=== PATIENT | male | born 1965 | race Caucasian/White ===

== ENCOUNTER 2017-12-27 11:43 | Inpatient (IN) | payer OTHER ==
[2017-12-27 12:38] VITALS: BMI 40.9
--- NOTE | 2017-12-27 13:45 | HP ---
CIWA Score - CIWA Score Nausea/Vomitin Muscle Tremors: 4-Moderate,w/Arms Extend Anxiety: 4-Mod. Anxious/Guarded Agitation: 1-Slight > Activity Paroxysmal Sweats: 1-Minimal Palms Moist Orientation: 1-Uncertain about Date Tacttile Disturbances: 1-Very Mild Itch/Numbness Auditory Disturbances: 0-None Visual Disturbances: 0-None Headache: 2-Mild CIWA-Ar Total Score: 16 Admission ROS BHS - HPI Chief Complaint: I've got to stop, it's killing me Allergies/Adverse Reactions: Allergies Allergy/AdvReac Type Severity Reaction Status Date / Time No Known Drug Allergies Allergy Verified 12/29/14 12:54 FISH Allergy Severe Vomiting Uncoded 12/29/14 12:54 History of Present Illness: 52 yo gentleman here for detox from alcohol, one of multiple admissions for treatment - last time in detox october 2017 at [facility], last time her in 2014 , history of cirrhosis, seizures. History of being on vivitrol given to him by [facility] a few months ago. Exam Limitations: Clinical Condition - Ebola screening Have you traveled outside of the country in the last 21 days: No (N) Have you had contact with anyone from an Ebola affected area: No Have you been sick,other than usual withdrawal symptoms: No Do you have a fever: No - Review of Systems Constitutional: Loss of Appetite, Malaise, Changes in sleep EENT: reports: No Symptoms Reported Respiratory: reports: No Symptoms reported Cardiac: reports: No Symptoms Reported GI: reports: Nausea, Poor Fluid Intake, Abdominal cramping : reports: Frequency Musculoskeletal: reports: Joint Pain Integumentary: reports: Dryness Neuro: reports: Seizure, Tremors Endocrine: reports: No Symptoms Reported Hematology: reports: No Symptoms Reported Psychiatric: reports: Judgement Intact, Mood/Affect Appropiate Other Systems: Reviewed and Negative Patient History - Patient Medical History Hx Anemia: No Hx Asthma: No Hx Chronic Obstructive Pulmonary Disease (COPD): No Hx Cardiac Disorders: No Hx Hypertension: No Hx Pacemaker: No HX Cerebrovascular Accident: No Hx Seizures: Yes (alcohol related-last episode was in 2014) Hx Dementia: No Hx Diabetes: No Hx Gastrointestinal Disorders: Yes (acid reflux) Hx Liver Disease: Yes (CIRRHOSIS) Hx Genitourinary Disorders: No Hx Sexually Transmitted Disorders: No Hx Renal Disease (ESRD): No Hx Human Immunodeficiency Virus (HIV): No Hx Hepatitis C: No Hx Depression: Yes (on meds, sees psych) Hx Suicide Attempt: No Hx Schizophrenia: No - Patient Surgical History Past Surgical History: No Hx Neurologic Surgery: No Hx Cataract Extraction: No Hx Cardiac Surgery: No Hx Lung Surgery: No Hx Breast Surgery: No Hx Breast Biopsy: No Hx Abdominal Surgery: No Hx Appendectomy: No Hx Cholecystectomy: No Hx Genitourinary Surgery: No Hx Section: No Hx Orthopedic Surgery: No Other Surgical History: ENDOSCOPY WITH SCLEROTHERAPY Anesthesia Reaction: No - PPD History Previous Implant?: Yes Documented Results: Negative w/o proof Implanted On Prior R Admission?: Yes Date: 12/30/13 Results: 0 mm PPD to be Administered?: Yes - Reproductive History Patient is a Female of Child Bearing Age (11 -55 yrs old): No (male) - Smoking Cessation Smoking history: Current every day smoker Have you smoked in the past 12 months: Yes Aproximately how many cigarettes per day: 10 Hx Chewing Tobacco Use: No Initiated information on smoking cessation: Yes 'Breaking Loose' booklet given: 12/27/17 (give on floor) - Substance & Tx. History Hx Alcohol Use: Yes Hx Substance Use: Yes Substance Use Type: Alcohol, Marijuana Hx Substance Use Treatment: Yes - Substances Abused alcohol Route: Oral Frequency: Daily Amount used: twelve 12 oz beers Age of first use: 18 Date of Last Use: 12/27/17 marijuana Route: Smoking Frequency: 1-2 times per week Amount used: 1 joint Age of first use: 18 Date of Last Use: 12/23/17 Family Disease History - Family Disease History Family Disease History: Other: Father (living, healthy), Mother (living, healthy ), Brother (one - living , healthy) Admission Physical Exam BHS - Vital Signs Vital Signs: Vital Signs - 24 hr 12/27/17 12:36 Temperature 98.5 F Pulse Rate 61 Respiratory 17 Rate Blood Pressure 163/101 - Physical General Appearance: Yes: Nourished, Appropriately Dressed, Mild Distress HEENTM: Yes: Hearing grossly Normal, Normocephalic, Normal Voice Respiratory: Yes: Normal Breath Sounds, No Respiratory Distress Neck: Yes: No masses,lesions,Nodules Breast: Yes: Breast Exam Deferred Cardiology: Yes: Regular Rhythm, Regular Rate Abdominal: Yes: Soft Genitourinary: Yes: Frequency Back: Yes: Normal Inspection Musculoskeletal: Yes: full range of Motion, Gait Steady, Joint Stiffness Extremities: Yes: Normal Inspection, Normal Range of Motion, Non-Tender Neurological: Yes: Fully Oriented, Alert, Normal Mood/Affect, Normal Response Integumentary: Yes: Normal Color, Dry, Warm Lymphatic: Yes: Within Normal Limits - Diagnostic (1) Alcohol dependence with uncomplicated withdrawal Current Visit: Yes Status: Chronic (2) Alcoholic cirrhosis of liver Current Visit: Yes Status: Acute Qualifiers: Ascites presence: without ascites Qualified Code(s): K70.30 - Alcoholic cirrhosis of liver without ascites (3) Esophageal varices in alcoholic cirrhosis Current Visit: Yes Status: Acute (4) Continuous nicotine dependence Current Visit: Yes Status: Acute (5) History of seizure Current Visit: Yes Status: Chronic Cleared for Admission [facility] - Detox or Rehab [facility] Level of Care: Medically Managed Detox Regimen/Protocol: Librium [facility] Breath Alcohol Content Breath Alcohol Content: 0.026 Urine Drug Screen - Results Drug Screen Negative: No Urine Drug Screen Results: THC-Marijuana, BZO-Benzodiazepines
[2017-12-27] MEDS ORDERED: guaiFENesin/D-METHORPHAN HB 10 ML UNIT-DOSE CUPS PO PRN (14:29)
[2017-12-27] MEDS ORDERED: MAGNESIUM HYDROX 2400MG/30ML ORAL SUSPENSION 30 ML CUP PO PRN (14:29)
[2017-12-27] MEDS ORDERED: P-EPHED 60MG/TRIPROLIDI 2.5MG TABLET PO PRN (14:29)
[2017-12-27] MEDS ORDERED: chlordiazePOXIDE HCL 25 MG CAPSULE PO PRN (14:29)
[2017-12-27] MEDS ORDERED: MAG HYDROX/AL HYDROX/SIMETH 30 ML UNIT-DOSE CUP PO PRN (14:29)
[2017-12-27] MEDS ORDERED: hydrOXYzine PAMOATE 25 MG CAPSULE (FP) PO PRN (14:29)
[2017-12-27] MEDS ORDERED: MAGNESIUM CITRATE 300 ML BOTTLE PO PRN (14:29)
[2017-12-27] MEDS ORDERED: LOPERAMIDE HCL 2 MG CAPSULE PO PRN (14:29)
[2017-12-27] MEDS ORDERED: MENTHOL/PHENOL 1 EACH UD MM PRN (14:29)
[2017-12-27] MEDS ORDERED: chlordiazePOXIDE HCL 25 MG CAPSULE PO ONE (16:45)
[2017-12-27] MEDS: PANTOPRAZOLE 40 MG TABLET (FP) PO SCH (18:25)
[2017-12-27] MEDS: chlordiazePOXIDE HCL 25 MG CAPSULE PO SCH ×2 (18:25→23:00)
[2017-12-27] MEDS: NICOTINE 21 MG/24 HOURS TOPICAL PATCH TD SCH (18:33)
[2017-12-27] MEDS ORDERED: MELATONIN 5 MG TABLETS PO PRN (22:00)
[2017-12-27] MEDS: LACTULOSE 20 GM/30 ML UDC (FOR ORAL USE ONLY) PO SCH (22:59)
[2017-12-27] MEDS: THIAMINE HCL 100 MG TABLET (FP) PO SCH (23:00)
[2017-12-27] MEDS: METHYL SALICYLATE/MENTHOL OINT 30 GM TUBE TP SCH (23:00)
[2017-12-28] MEDS: chlordiazePOXIDE HCL 25 MG CAPSULE PO SCH ×4 (05:46→22:17)
[2017-12-28] MEDS: LACTULOSE 20 GM/30 ML UDC (FOR ORAL USE ONLY) PO SCH ×3 (05:49→22:17)
[2017-12-28 10:10] LABS: HEMATOCRIT 36.9 % (35.4-49); HEMOGLOBIN 12.3 GM/dL (11.7-16.9); MCH 30.1 pg (25.7-33.7); MCHC 33.2 g/dl (32.0-35.9); MEAN CELL VOLUME 90.7 fl (80-96); MEAN PLT VOLUME 10.8 fl (7.5-11.1); PLATELET COUNT 47 K/MM3 (134-434); RBC 4.07 M/mm3 (4.00-5.60); WHITE BLOOD COUNT 7.5 K/mm3 (4.0-10.0)
[2017-12-28 10:11] LABS: CHLORIDE 104 mmol/L (98-107); POTASSIUM 3.3 mmol/L (3.5-5.1); SODIUM 139 mmol/L (136-145)
[2017-12-28 10:17] LABS: URINE APPEARANCE CLEAR; URINE BILIRUBIN NEGATIVE (<2.0 mg/dL); URINE COLOR STRAW; URINE GLUCOSE (UA) NEGATIVE (NEGATIVE); URINE KETONE NEGATIVE (NEGATIVE); URINE LEUK ESTERASE NEGATIVE (NEGATIVE); URINE NITRITE NEGATIVE (NEGATIVE); URINE PROTEIN NEGATIVE (NEGATIVE); URINE UROBILINOGEN NEGATIVE mg/dL (0.2-1.0)
[2017-12-28] MEDS: PRENATAL VITAMINS W/ FOLIC ACID TABLET (FP) PO SCH (10:34)
[2017-12-28] MEDS: NICOTINE 21 MG/24 HOURS TOPICAL PATCH TD SCH (10:34)
[2017-12-28] MEDS: PANTOPRAZOLE 40 MG TABLET (FP) PO SCH (10:34)
[2017-12-28] MEDS: METHYL SALICYLATE/MENTHOL OINT 30 GM TUBE TP SCH ×2 (10:35→23:33)
[2017-12-28 10:36] LABS: ALBUMIN 3.5 g/dl (3.4-5.0); ALK PHOS 97 U/L (45-117); ANION GAP 5 (8-16); BILIRUBIN,TOTAL 1.1 mg/dL (0.2-1.0); BLOOD UREA NITROGEN 7 mg/dL (7-18); CALCIUM 9.1 mg/dL (8.5-10.1); CO2 30 mmol/L (21-32); CREATININE 0.7 mg/dL (0.7-1.3); GLUCOSE,RANDOM 92 mg/dL (74-106); SGOT/AST 65 U/L (15-37); SGPT/ALT 31 U/L (12-78); TOT PROT 6.8 g/dl (6.4-8.2)
[2017-12-28] MEDS: NADOLOL 20 MG TABLET (FP) PO SCH (10:36)
--- NOTE | 2017-12-28 12:13 | CONSULT ---
[facility] Psychiatric Consult - Data Date of interview: 12/28/17 Admission source: Self-referred Identifying data: 52 y/o male residing with living girlfriend, unemployed receiving disability benefits Substance Abuse History: Admitted to Detox for alcohol, smokes marijuana occasionally. He has a past history of numerous prior in patient and out patient Detox treatments. His most recent in patient Detox rtreatment was @ [facility] in October. Drink beers mostly. Please refer to addiction counselor summary for more detailed drug history Medical History: Liver cirrhosis. ETOH related seizures, black out spells. GERD. Surgical endoscopy with Sclerotherapy Psychiatric History: History of depression and anxiety. No prior psychiatric hospitalization. He is currently receiving out patient psychiatric care treatment @ "[facility]" , medciated with Effexor 225 mg po daily, Remeron 30mg po qhs, Celexa 10 mg po daily. He is complaint with his treatment and claimed that his medicaions are effectve in alleviating his psychiatric symptoms Physical/Sexual Abuse/Trauma History: denied Mental Status Exam - Mental Status Exam Alert and Oriented to: Time, Place, Person Cognitive Function: Fair Patient Appearance: Well Groomed Mood: Apathetic, Nervous Affect: Appropriate Patient Behavior: Cooperative Speech Pattern: Clear Voice Loudness: Normal Thought Process: Intact, Goal Oriented Thought Disorder: Not Present Hallucinations: None Suicidal Ideation: None Homicidal Ideation: None Insight/Judgement: Poor Sleep: Fair Appetite: Fair Muscle strength/Tone: Normal Gait/Station: Normal Psychiatric Findings - Problem List ([place] 1, 2,3) (1) Alcoholic cirrhosis of liver Current Visit: Yes Status: Acute Qualifiers: Ascites presence: without ascites Qualified Code(s): K70.30 - Alcoholic cirrhosis of liver without ascites (2) Continuous nicotine dependence Current Visit: Yes Status: Acute (3) Esophageal varices in alcoholic cirrhosis Current Visit: Yes Status: Acute (4) Alcohol dependence with uncomplicated withdrawal Current Visit: Yes Status: Chronic (5) History of seizure Current Visit: Yes Status: Chronic (6) Anxiety Current Visit: No Status: Acute (7) Bleeding chronic gastric ulcer Current Visit: No Status: Acute (8) Depression Current Visit: No Status: Acute - Initial Treatment Plan Initial Treatment Plan: Contiune present Detox treatment. Detox protocol. Resume Clexa 10 mg po daily. Remeron 30 mg po q hs. Effexor 225 mg po daily
--- NOTE | 2017-12-28 13:53 | PN ---
S CIWA - CIWA Score Nausea/Vomitin-Mild Nausea/No Vomiting Muscle Tremors: 4-Moderate,w/Arms Extend Anxiety: 3 Agitation: 3 Paroxysmal Sweats: 1-Minimal Palms Moist Orientation: 0-Oriented Tacttile Disturbances: 1-Very Mild Itch/Numbness Auditory Disturbances: 0-None Visual Disturbances: 0-None Headache: 0-None Present CIWA-Ar Total Score: 13 BHS Progress Note (SOAP) Subjective: sweat tremor trouble sleep at night anxiety irritable Objective: 12/28/17 13:54 Vital Signs Temperature 98 F 12/28/17 09:50 Pulse Rate 97 H 12/28/17 09:50 Respiratory Rate 18 12/28/17 09:50 Blood Pressure 120/57 12/28/17 09:50 O2 Sat by Pulse Oximetry (%) Laboratory Last Values WBC 7.5 K/mm3 (4.0-10.0) D 12/28/17 07:50 RBC 4.07 M/mm3 (4.00-5.60) 12/28/17 07:50 Hgb 12.3 GM/dL (11.7-16.9) 12/28/17 07:50 Hct 36.9 % (35.4-49) 12/28/17 07:50 MCV 90.7 fl (80-96) 12/28/17 07:50 MCH 30.1 pg (25.7-33.7) D 12/28/17 07:50 MCHC 33.2 g/dl (32.0-35.9) 12/28/17 07:50 RDW 22.0 % (11.9-15.9) H 12/28/17 07:50 Plt Count 47 K/MM3 (134-434) L D 12/28/17 07:50 MPV 10.8 fl (7.5-11.1) 12/28/17 07:50 Sodium 139 mmol/L (136-145) 12/28/17 07:50 Potassium 3.3 mmol/L (3.5-5.1) L D 12/28/17 07:50 Chloride 104 mmol/L (98-107) 12/28/17 07:50 Carbon Dioxide 30 mmol/L (21-32) 12/28/17 07:50 Anion Gap 5 (8-16) L 12/28/17 07:50 BUN 7 mg/dL (7-18) 12/28/17 07:50 Creatinine 0.7 mg/dL (0.7-1.3) 12/28/17 07:50 Creat Clearance w eGFR > 60 (>60) 12/28/17 07:50 Random Glucose 92 mg/dL (74-106) 12/28/17 07:50 Calcium 9.1 mg/dL (8.5-10.1) 12/28/17 07:50 Total Bilirubin 1.1 mg/dL (0.2-1.0) H D 12/28/17 07:50 AST 65 U/L (15-37) H D 12/28/17 07:50 ALT 31 U/L (12-78) 12/28/17 07:50 Alkaline Phosphatase 97 U/L (45-117) 12/28/17 07:50 Total Protein 6.8 g/dl (6.4-8.2) 12/28/17 07:50 Albumin 3.5 g/dl (3.4-5.0) 12/28/17 07:50 Urine Color Straw 12/28/17 09:00 Urine Appearance Clear 12/28/17 09:00 Urine pH 7.0 (5.0-8.0) 12/28/17 09:00 Ur Specific [place] 1.001 (1.001-1.035) 12/28/17 09:00 Urine Protein Negative (NEGATIVE) 12/28/17 09:00 Urine Glucose (UA) Negative (NEGATIVE) 12/28/17 09:00 Urine Ketones Negative (NEGATIVE) 12/28/17 09:00 Urine Blood Negative (NEGATIVE) 12/28/17 09:00 Urine Nitrite Negative (NEGATIVE) 12/28/17 09:00 Urine Bilirubin Negative (<2.0 mg/dL) 12/28/17 09:00 Urine Urobilinogen Negative mg/dL (0.2-1.0) 12/28/17 09:00 Ur Leukocyte Esterase Negative (NEGATIVE) 12/28/17 09:00 RPR Titer Nonreactive (NONREACTIVE) 12/28/17 07:50 lab noted Assessment: 12/28/17 13:54 withdrawal sx Plan: continue detox
--- NOTE | 2017-12-28 21:17 | PN ---
[facility] Progress Note Note: Psychiatry Attending's ip litigation associate note : Called by nurse to enter order for mirtazapine. Chart reviewed.Dr Lowe's note : appreciated. Treatment plan revisited.Vital signs are noted. As per nurse, the patient is inquisitive about his dose of remeron. Plan : Will order remeron 15 mg po hs (reduced). Confirmed by pharmacy claims of 11/07/17. At [facility] # [id number]. Titration in next 24 hours.
[2017-12-28] MEDS: MIRTAZAPINE 15 MG TABLET (FP) PO SCH (22:17)
[2017-12-28] MEDS: THIAMINE HCL 100 MG TABLET (FP) PO SCH (22:17)
[2017-12-29] MEDS: LACTULOSE 20 GM/30 ML UDC (FOR ORAL USE ONLY) PO SCH ×3 (05:32→22:24)
[2017-12-29] MEDS: chlordiazePOXIDE HCL 25 MG CAPSULE PO SCH ×2 (05:32→10:20)
--- NOTE | 2017-12-29 09:02 | EKG ---
Test Reason : Blood Pressure : / mmHG Vent. Rate : 061 BPM Atrial Rate : 061 BPM P-R Int : 154 ms QRS Dur : 088 ms QT Int : 436 ms P-R-T Axes : -11 -28 032 degrees QTc Int : 438 ms NORMAL SINUS RHYTHM NORMAL ECG WHEN COMPARED WITH ECG OF 13-NOV-2014 13:56, VENT. RATE HAS DECREASED BY 39 BPM NONSPECIFIC T WAVE ABNORMALITY NOW EVIDENT IN INFERIOR LEADS Confirmed by RJ MACKEY, TULIO ([id number]) on 12/29/2017 9:02:34 AM Referred By: Confirmed By:TULIO DE LA ROSA MD
[2017-12-29] MEDS ORDERED: VENLAFAXINE HCL PO SCH (10:00)
[2017-12-29] MEDS ORDERED: VENLAFAXINE HCL 100 MG TABLET PO SCH (10:00)
[2017-12-29] MEDS: NADOLOL 20 MG TABLET (FP) PO SCH (10:19)
[2017-12-29] MEDS: PANTOPRAZOLE 40 MG TABLET (FP) PO SCH (10:19)
[2017-12-29] MEDS: NICOTINE 21 MG/24 HOURS TOPICAL PATCH TD SCH (10:19)
[2017-12-29] MEDS: PRENATAL VITAMINS W/ FOLIC ACID TABLET (FP) PO SCH (10:19)
[2017-12-29] MEDS: METHYL SALICYLATE/MENTHOL OINT 30 GM TUBE TP SCH ×2 (10:21→22:24)
--- NOTE | 2017-12-29 10:24 | PN ---
S CIWA - CIWA Score Nausea/Vomitin Muscle Tremors: 3 Anxiety: 2 Agitation: 2 Paroxysmal Sweats: 1-Minimal Palms Moist Orientation: 0-Oriented Tacttile Disturbances: 1-Very Mild Itch/Numbness Auditory Disturbances: 1-Very Mild Visual Disturbances: 0-None Headache: 2-Mild CIWA-Ar Total Score: 15 BHS Progress Note (SOAP) Subjective: alert,irritable,anxious,interrupted sleep,tremor Objective: 12/29/17 10:23 Vital Signs Temperature 95.5 F L 12/29/17 10:00 Pulse Rate 68 12/29/17 10:00 Respiratory Rate 16 12/29/17 10:00 Blood Pressure 119/74 12/29/17 10:00 O2 Sat by Pulse Oximetry (%) Laboratory Last Values WBC 7.5 K/mm3 (4.0-10.0) D 12/28/17 07:50 RBC 4.07 M/mm3 (4.00-5.60) 12/28/17 07:50 Hgb 12.3 GM/dL (11.7-16.9) 12/28/17 07:50 Hct 36.9 % (35.4-49) 12/28/17 07:50 MCV 90.7 fl (80-96) 12/28/17 07:50 MCH 30.1 pg (25.7-33.7) D 12/28/17 07:50 MCHC 33.2 g/dl (32.0-35.9) 12/28/17 07:50 RDW 22.0 % (11.9-15.9) H 12/28/17 07:50 Plt Count 47 K/MM3 (134-434) L D 12/28/17 07:50 MPV 10.8 fl (7.5-11.1) 12/28/17 07:50 Sodium 139 mmol/L (136-145) 12/28/17 07:50 Potassium 3.3 mmol/L (3.5-5.1) L D 12/28/17 07:50 Chloride 104 mmol/L (98-107) 12/28/17 07:50 Carbon Dioxide 30 mmol/L (21-32) 12/28/17 07:50 Anion Gap 5 (8-16) L 12/28/17 07:50 BUN 7 mg/dL (7-18) 12/28/17 07:50 Creatinine 0.7 mg/dL (0.7-1.3) 12/28/17 07:50 Creat Clearance w eGFR > 60 (>60) 12/28/17 07:50 Random Glucose 92 mg/dL (74-106) 12/28/17 07:50 Calcium 9.1 mg/dL (8.5-10.1) 12/28/17 07:50 Total Bilirubin 1.1 mg/dL (0.2-1.0) H D 12/28/17 07:50 AST 65 U/L (15-37) H D 12/28/17 07:50 ALT 31 U/L (12-78) 12/28/17 07:50 Alkaline Phosphatase 97 U/L (45-117) 12/28/17 07:50 Total Protein 6.8 g/dl (6.4-8.2) 12/28/17 07:50 Albumin 3.5 g/dl (3.4-5.0) 12/28/17 07:50 Urine Color Straw 12/28/17 09:00 Urine Appearance Clear 12/28/17 09:00 Urine pH 7.0 (5.0-8.0) 12/28/17 09:00 Ur Specific [place] 1.001 (1.001-1.035) 12/28/17 09:00 Urine Protein Negative (NEGATIVE) 12/28/17 09:00 Urine Glucose (UA) Negative (NEGATIVE) 12/28/17 09:00 Urine Ketones Negative (NEGATIVE) 12/28/17 09:00 Urine Blood Negative (NEGATIVE) 12/28/17 09:00 Urine Nitrite Negative (NEGATIVE) 12/28/17 09:00 Urine Bilirubin Negative (<2.0 mg/dL) 12/28/17 09:00 Urine Urobilinogen Negative mg/dL (0.2-1.0) 12/28/17 09:00 Ur Leukocyte Esterase Negative (NEGATIVE) 12/28/17 09:00 RPR Titer Nonreactive (NONREACTIVE) 12/28/17 07:50 Assessment: 12/29/17 10:31 withdrawal symptom Plan: continue detox,psychiatric reevaluation for neurontin
[2017-12-29] MEDS: POTASSIUM CHLORIDE TABS 20 MEQ TABLET.ER (FP) PO SCH ×2 (12:08→22:24)
[2017-12-29] MEDS: VENLAFAXINE HCL 75 MG E.R. CAPSULES (FP) PO SCH (12:08)
[2017-12-29] MEDS: GABAPENTIN 300 MG CAPSULE (FP) PO SCH ×2 (14:06→22:24)
[2017-12-29] MEDS: chlordiazePOXIDE 5 MG CAPSULE PO SCH ×2 (17:49→22:25)
[2017-12-29] MEDS: MIRTAZAPINE 15 MG TABLET (FP) PO SCH (22:24)
[2017-12-29] MEDS: THIAMINE HCL 100 MG TABLET (FP) PO SCH (22:24)
[2017-12-30] MEDS: GABAPENTIN 300 MG CAPSULE (FP) PO SCH ×3 (05:21→22:13)
[2017-12-30] MEDS: chlordiazePOXIDE 5 MG CAPSULE PO SCH ×2 (05:21→10:44)
[2017-12-30] MEDS: LACTULOSE 20 GM/30 ML UDC (FOR ORAL USE ONLY) PO SCH ×3 (05:23→22:16)
[2017-12-30] MEDS: VENLAFAXINE HCL 75 MG E.R. CAPSULES (FP) PO SCH (10:43)
[2017-12-30] MEDS: PANTOPRAZOLE 40 MG TABLET (FP) PO SCH (10:44)
[2017-12-30] MEDS: NADOLOL 20 MG TABLET (FP) PO SCH (10:44)
[2017-12-30] MEDS: PRENATAL VITAMINS W/ FOLIC ACID TABLET (FP) PO SCH (10:44)
[2017-12-30] MEDS: POTASSIUM CHLORIDE TABS 20 MEQ TABLET.ER (FP) PO SCH ×2 (10:45→22:13)
[2017-12-30] MEDS: NICOTINE 21 MG/24 HOURS TOPICAL PATCH TD SCH (10:45)
[2017-12-30] MEDS: METHYL SALICYLATE/MENTHOL OINT 30 GM TUBE TP SCH ×2 (10:45→22:16)
--- NOTE | 2017-12-30 11:50 | PN ---
S Progress Note (SOAP) Subjective: alert,irritable,anxious,interrupted sleep,interrupted sleep Objective: 12/30/17 11:49 Vital Signs Temperature 98.6 F 12/30/17 09:23 Pulse Rate 75 12/30/17 09:23 Respiratory Rate 18 12/30/17 09:23 Blood Pressure 121/74 12/30/17 09:23 O2 Sat by Pulse Oximetry (%) Assessment: 12/30/17 11:49 withdrawal symptom Plan: continue detox
[2017-12-30] MEDS: chlordiazePOXIDE HCL 10 MG CAPSULE PO SCH ×2 (17:11→22:13)
[2017-12-30] MEDS: MIRTAZAPINE 15 MG TABLET (FP) PO SCH (22:13)
[2017-12-30] MEDS: THIAMINE HCL 100 MG TABLET (FP) PO SCH (22:13)
[2017-12-31] MEDS: LACTULOSE 20 GM/30 ML UDC (FOR ORAL USE ONLY) PO SCH ×3 (05:10→22:27)
[2017-12-31] MEDS: chlordiazePOXIDE HCL 10 MG CAPSULE PO SCH ×2 (05:10→11:03)
[2017-12-31] MEDS: GABAPENTIN 300 MG CAPSULE (FP) PO SCH ×3 (05:10→22:26)
--- NOTE | 2017-12-31 08:49 | PN ---
BHS Progress Note (SOAP) Subjective: feeling better , ready to go to rehab Objective: 12/31/17 08:46 Vital Signs Temperature 96.1 F L 12/31/17 06:00 Pulse Rate 56 L 12/31/17 06:00 Respiratory Rate 18 12/31/17 06:00 Blood Pressure 134/87 12/31/17 06:00 O2 Sat by Pulse Oximetry (%) Laboratory Tests 12/28/17 12/28/17 12/28/17 07:50 07:50 07:50 WBC 7.5 D RBC 4.07 Hgb 12.3 Hct 36.9 MCV 90.7 MCH 30.1 D MCHC 33.2 RDW 22.0 H Plt Count 47 L D MPV 10.8 Sodium 139 Potassium 3.3 L D Chloride 104 Carbon Dioxide 30 Anion Gap 5 L BUN 7 Creatinine 0.7 Creat Clearance w eGFR > 60 Random Glucose 92 Calcium 9.1 Total Bilirubin 1.1 H D AST 65 H D ALT 31 Alkaline Phosphatase 97 Total Protein 6.8 Albumin 3.5 Urine Color Urine Appearance Urine pH Ur Specific [place] Urine Protein Urine Glucose (UA) Urine Ketones Urine Blood Urine Nitrite Urine Bilirubin Urine Urobilinogen Ur Leukocyte Esterase RPR Titer Nonreactive 12/28/17 09:00 WBC RBC Hgb Hct MCV MCH MCHC RDW Plt Count MPV Sodium Potassium Chloride Carbon Dioxide Anion Gap BUN Creatinine Creat Clearance w eGFR Random Glucose Calcium Total Bilirubin AST ALT Alkaline Phosphatase Total Protein Albumin Urine Color Straw Urine Appearance Clear Urine pH 7.0 Ur Specific [place] 1.001 Urine Protein Negative Urine Glucose (UA) Negative Urine Ketones Negative Urine Blood Negative Urine Nitrite Negative Urine Bilirubin Negative Urine Urobilinogen Negative Ur Leukocyte Esterase Negative RPR Titer pt aox3 in nad ambulating well no tremor Assessment: 12/31/17 08:47 withdrawal sx's improved Plan: d/c today to rehab.
--- NOTE | 2017-12-31 08:53 | DS ---
[facility] Detox Discharge Summary Admission Date: 12/27/17 Discharge Date: 12/31/17 - History Present History: Alcohol Dependence - Physical Exam Results Vital Signs: Vital Signs Temperature 96.1 F L 12/31/17 06:00 Pulse Rate 56 L 12/31/17 06:00 Respiratory Rate 12/31/17 06:00 Blood Pressure 134/87 12/31/17 06:00 O2 Sat by Pulse Oximetry (%) - Treatment Hospital Course: Detox Protocol Followed, Detoxed Safely, Responded well, Discharged Condition Good, Rehab Referral Accepted Patient has Accepted a Rehab Referral to: [facility] - Medication Discharge Medications: Ambulatory Orders Folic Acid - 1 mg PO DAILY tablet 11/30/14 Thiamine HCl [Vitamin B1 -] 100 mg PO DAILY tablet 11/30/14 Mirtazapine [Remeron -] 45 mg PO HS #30 tablet 12/06/14 Pantoprazole Sodium [Protonix -] 40 mg PO DAILY 12/29/14 Diclofenac Sodium [Voltaren] 2 gm TP TID PRN 12/27/17 Gabapentin [Neurontin -] 300 mg PO Q8H 12/27/17 Lactulose 15 ml PO TID 12/27/17 Nicotine [Nicotine Patch 21 mg/24 hr] 1 each TD DAILY 12/27/17 traZODone HCL [Desyrel -] 100 mg PO HS 12/27/17 Gabapentin 300 mg PO TID #90 ml 12/29/17 Nadolol [Corgard -] 20 mg PO DAILY #30 tablet 12/29/17 Venlafaxine HCl ER [Effexor Xr -] 225 mg PO DAILY #30 cap.er.24h 12/29/17 - Diagnosis (1) Alcoholic cirrhosis of liver Current Visit: Yes Status: Chronic Qualifiers: Ascites presence: without ascites Qualified Code(s): K70.30 - Alcoholic cirrhosis of liver without ascites (2) Continuous nicotine dependence Current Visit: Yes Status: Chronic (3) Esophageal varices in alcoholic cirrhosis Current Visit: Yes Status: Chronic (4) Alcohol dependence with uncomplicated withdrawal Current Visit: Yes Status: Chronic (5) History of seizure Current Visit: Yes Status: Chronic (6) Anxiety Current Visit: No Status: Acute (7) Bleeding chronic gastric ulcer Current Visit: No Status: Acute (8) Depression Current Visit: No Status: Chronic - AMA Did Patient Leave Against Medical Advice: No
[2017-12-31] MEDS: NADOLOL 20 MG TABLET (FP) PO SCH (11:03)
[2017-12-31] MEDS: POTASSIUM CHLORIDE TABS 20 MEQ TABLET.ER (FP) PO SCH ×2 (11:04→22:26)
[2017-12-31] MEDS: VENLAFAXINE HCL 75 MG E.R. CAPSULES (FP) PO SCH (11:04)
[2017-12-31] MEDS: NICOTINE 21 MG/24 HOURS TOPICAL PATCH TD SCH (11:05)
[2017-12-31] MEDS: PANTOPRAZOLE 40 MG TABLET (FP) PO SCH (11:05)
[2017-12-31] MEDS: PRENATAL VITAMINS W/ FOLIC ACID TABLET (FP) PO SCH (11:05)
[2017-12-31] MEDS: METHYL SALICYLATE/MENTHOL OINT 30 GM TUBE TP SCH ×2 (11:06→22:27)
[2017-12-31] MEDS: MIRTAZAPINE 15 MG TABLET (FP) PO SCH (22:26)
[2017-12-31] MEDS: THIAMINE HCL 100 MG TABLET (FP) PO SCH (22:26)
[2018-01-01] MEDS: LACTULOSE 20 GM/30 ML UDC (FOR ORAL USE ONLY) PO SCH (09:23)
[2018-01-01] MEDS: GABAPENTIN 300 MG CAPSULE (FP) PO SCH (09:23)
[2018-01-01 09:29] VITALS: BP 144/54; PULSE 76; TEMP 96.4
--- NOTE | 2018-01-01 10:22 | PN ---
[facility] Progress Note Note: PATIENT EVALUATED IN ROOM. AMBULATORY AND IN NAD. PENDING DISCHARGE TO REHAB. ADMITTED TO [facility] 12/27/17 FOR ALCOHOL DETOX. Laboratory Tests 12/28/17 12/28/17 12/28/17 07:50 07:50 07:50 WBC 7.5 D RBC 4.07 Hgb 12.3 Hct 36.9 MCV 90.7 MCH 30.1 D MCHC 33.2 RDW 22.0 H Plt Count 47 L D MPV 10.8 Sodium 139 Potassium 3.3 L D Chloride 104 Carbon Dioxide 30 Anion Gap 5 L BUN 7 Creatinine 0.7 Creat Clearance w eGFR > 60 Random Glucose 92 Calcium 9.1 Total Bilirubin 1.1 H D AST 65 H D ALT 31 Alkaline Phosphatase 97 Total Protein 6.8 Albumin 3.5 Urine Color Urine Appearance Urine pH Ur Specific [place] Urine Protein Urine Glucose (UA) Urine Ketones Urine Blood Urine Nitrite Urine Bilirubin Urine Urobilinogen Ur Leukocyte Esterase RPR Titer Nonreactive 12/28/17 09:00 WBC RBC Hgb Hct MCV MCH MCHC RDW Plt Count MPV Sodium Potassium Chloride Carbon Dioxide Anion Gap BUN Creatinine Creat Clearance w eGFR Random Glucose Calcium Total Bilirubin AST ALT Alkaline Phosphatase Total Protein Albumin Urine Color Straw Urine Appearance Clear Urine pH 7.0 Ur Specific [place] 1.001 Urine Protein Negative Urine Glucose (UA) Negative Urine Ketones Negative Urine Blood Negative Urine Nitrite Negative Urine Bilirubin Negative Urine Urobilinogen Negative Ur Leukocyte Esterase Negative RPR Titer Vital Signs Temperature 96.4 F L 01/01/18 09:29 Pulse Rate 76 01/01/18 09:29 Respiratory Rate 20 01/01/18 09:29 Blood Pressure 144/54 01/01/18 09:29 O2 Sat by Pulse Oximetry (%) OBJ: SKIN WARM AND DRY CAR: S1S2. RRR RESP: CTA BL EXT: FULL ROM. NO EDEMA A/P ETOH DETOX PT MEDICALLY STABLE CONTINUE CURRENT TREATMENT ENCOURAGE ORAL FLUIDS
[2018-01-01] MEDS: PRENATAL VITAMINS W/ FOLIC ACID TABLET (FP) PO SCH (10:27)
[2018-01-01] MEDS: PANTOPRAZOLE 40 MG TABLET (FP) PO SCH (10:27)
[2018-01-01] MEDS: NADOLOL 20 MG TABLET (FP) PO SCH (10:27)
[2018-01-01] MEDS: POTASSIUM CHLORIDE TABS 20 MEQ TABLET.ER (FP) PO SCH (10:27)
[2018-01-01] MEDS: VENLAFAXINE HCL 75 MG E.R. CAPSULES (FP) PO SCH (10:27)
[2018-01-01] MEDS: NICOTINE 21 MG/24 HOURS TOPICAL PATCH TD SCH (10:28)
[2018-01-01] MEDS: METHYL SALICYLATE/MENTHOL OINT 30 GM TUBE TP SCH (10:29)
== END 2018-01-01 12:52 | disposition other institution (70) | DRG 896 ==
LOC: YASAS 11:43 → Y6N 16:39
PROVIDERS: ADMIT Surgery; ATTEND Surgery
PROC: HZ2ZZZZ Detoxification Services for Substance Abuse Treatment (ICD-10-PCS; principal; 2017-12-27)
DX: F10.230 Alcohol dependence with withdrawal, uncomplicated (principal); K25.4 Chronic or unspecified gastric ulcer with hemorrhage; I85.10 Secondary esophageal varices without bleeding; F17.210 Nicotine dependence, cigarettes, uncomplicated; F41.9 Anxiety disorder, unspecified; F32.9 Major depressive disorder, single episode, unspecified; K70.30 Alcoholic cirrhosis of liver without ascites; K21.9 Gastro-esophageal reflux disease without esophagitis; Z86.69 Personal history of other diseases of the nervous system and sense organs; Z91.013 Allergy to seafood
CPT/HCPCS: 36415; 80053; 81003; 85027; 86593; 93005; 93010

== ENCOUNTER 2018-01-01 13:23 | Inpatient (IN) | payer OTHER ==
[2018-01-01] MEDS ORDERED: MAGNESIUM CITRATE 300 ML BOTTLE PO PRN (13:50)
[2018-01-01] MEDS ORDERED: guaiFENesin/D-METHORPHAN HB 10 ML UNIT-DOSE CUPS PO PRN (13:50)
[2018-01-01] MEDS ORDERED: P-EPHED 60MG/TRIPROLIDI 2.5MG TABLET PO PRN (13:50)
[2018-01-01] MEDS ORDERED: MAGNESIUM HYDROX 2400MG/30ML ORAL SUSPENSION 30 ML CUP PO PRN (13:50)
[2018-01-01] MEDS ORDERED: LOPERAMIDE HCL 2 MG CAPSULE PO PRN (13:50)
[2018-01-01] MEDS ORDERED: ACETAMINOPHEN 325 MG TABLET (FP) PO PRN (13:50)
[2018-01-01] MEDS ORDERED: IBUPROFEN 400 MG TABLET (FP) PO PRN (13:50)
[2018-01-01] MEDS ORDERED: MAG HYDROX/AL HYDROX/SIMETH 30 ML UNIT-DOSE CUP PO PRN (13:50)
--- NOTE | 2018-01-01 13:53 | DS ---
[facility] Detox Discharge Summary Admission Date: 01/01/18 - History Present History: Alcohol Dependence - Physical Exam Results Vital Signs: Vital Signs Temperature 98.8 F 01/01/18 13:42 Pulse Rate 69 01/01/18 13:42 Respiratory Rate 18 01/01/18 13:42 Blood Pressure 106/70 01/01/18 13:42 O2 Sat by Pulse Oximetry (%) - Treatment Hospital Course: Detox Protocol Followed, Detoxed Safely, Responded well, Rehab Referral Accepted - Medication Discharge Medications: Ambulatory Orders Folic Acid - 1 mg PO DAILY tablet 11/30/14 Thiamine HCl [Vitamin B1 -] 100 mg PO DAILY tablet 11/30/14 Mirtazapine [Remeron -] 45 mg PO HS #30 tablet 12/06/14 Pantoprazole Sodium [Protonix -] 40 mg PO DAILY 12/29/14 Diclofenac Sodium [Voltaren] 2 gm TP TID PRN 12/27/17 Gabapentin [Neurontin -] 300 mg PO Q8H 12/27/17 Lactulose 15 ml PO TID 12/27/17 Nicotine [Nicotine Patch 21 mg/24 hr] 1 each TD DAILY 12/27/17 traZODone HCL [Desyrel -] 100 mg PO HS 12/27/17 Gabapentin 300 mg PO TID #90 ml 12/29/17 Nadolol [Corgard -] 20 mg PO DAILY #30 tablet 12/29/17 Venlafaxine HCl ER [Effexor Xr -] 225 mg PO DAILY #30 cap.er.24h 12/29/17 Lactulose (Oral Use) [Cephulac -] 15 gm PO TID #1 udc 12/31/17 - AMA Did Patient Leave Against Medical Advice: No
--- NOTE | 2018-01-01 13:56 | PN ---
[facility] Progress Note Note: Patient completed detox for Alcoholism and transferred to [facility] on [address]. Patient responded well to detox and motivated to continue to with rehab. Medically stable. Evaluated today and no complaints made by patient. Patient denies SI/HI. Patient transfer orders completed.
--- NOTE | 2018-01-01 14:16 | HP ---
Psychiatrist Admission - Data Date of interview: 01/01/18 Admission source: 6N Identifying data: This is the second [facility] admission for this 52 years old single male, unemployed on SSI, domiciled living with his girlfriend Medical History: Significant for cirrhosis of the liver, GERD and history of alcohol withdrawal seizure and GI bleed with endoscopy with sclerotherapy. Smokes 10 cigarettes daily Psychiatric History: Reports being diagnosed with depression and anxiety more than 5 years ago. Denies previous psychiatric hospitalization or suicidal attempt. reports receiving psychiatric services at [facility] and heisprescribed Effexor XR 225 mg po daily and Remeron 45 mg po HS. At present, reports feeling anxious and sleeping poorly Physical/Sexual Abuse/Trauma History: Denies history of emotional, physical or sexual abuse as well as DV relationship. No service Additional Comment: Reports history of a few previous distant arrests on charges of DWI Vital Signs: Vital Signs - 24 hr 01/01/18 13:42 Temperature 98.8 F Pulse Rate 69 Respiratory 18 Rate Blood Pressure 106/70 Allergies/Adverse Reactions: Allergies Allergy/AdvReac Type Severity Reaction Status Date / Time No Known Drug Allergies Allergy Verified 01/01/18 13:42 FISH Allergy Severe Hives Uncoded 01/01/18 14:01 Date of last physical exam: 12/27/17 Concur with the findings of this exam: Yes - Substance Abuse/Tx History Hx Alcohol Use: Yes Hx Substance Use: Yes Substance Use Type: Alcohol (Started drinking alcohol at age 18, consumes 12x 12oz of beer daily. Last drank on 12/27/17), Marijuana (Started smoking marijuana at age 18, consumes one joint 1-2 times weekly. Last smoked on 12/23/17) Hx Substance Use Treatment: Yes (5 pevious inpt detox & one inpt rehab admission @ [facility]) Mental Status Exam - Mental Status Exam Alert and Oriented to: Time, Place, Person Cognitive Function: Fair Patient Appearance: Disheveled Mood: Anxious Affect: Appropriate Patient Behavior: Cooperative Speech Pattern: Clear Voice Loudness: Normal Thought Process: Intact, Goal Oriented Thought Disorder: Not Present Hallucinations: Denies Suicidal Ideation: Denies Homicidal Ideation: Denies Insight/Judgement: Fair Sleep: Poorly Appetite: Good Muscle strength/Tone: Normal Gait/Station: Normal Psychiatric Findings - Problem List ([place] 1, 2,3) (1) Alcohol dependence Current Visit: Yes Status: Acute (2) Cannabis abuse Current Visit: Yes Status: Acute (3) Nicotine dependence Current Visit: Yes Status: Acute (4) Anxiety disorder Current Visit: Yes Status: Chronic (5) JUSTIN (generalized anxiety disorder) Current Visit: No Status: Ruled-out (6) Substance-induced anxiety disorder Current Visit: Yes Status: Acute (7) Substance-induced sleep disorder Current Visit: Yes Status: Acute (8) Alcoholic cirrhosis of liver Current Visit: No Status: Chronic Qualifiers: Ascites presence: without ascites Qualified Code(s): K70.30 - Alcoholic cirrhosis of liver without ascites (9) Bleeding chronic gastric ulcer Current Visit: No Status: Chronic (10) Esophageal varices in alcoholic cirrhosis Current Visit: No Status: Chronic (11) History of seizure Current Visit: No Status: Chronic - Initial Treatment Plan Initial Treatment Plan: 1) Continue Effexor Xr 225 mg po daily and Remeron 45 mg po HS. 2) Monitor progress
[2018-01-01] MEDS: LACTULOSE 20 GM/30 ML UDC (FOR ORAL USE ONLY) PO SCH (21:14)
[2018-01-01] MEDS: GABAPENTIN 300 MG CAPSULE (FP) PO SCH (21:15)
[2018-01-01] MEDS: THIAMINE HCL 100 MG TABLET (FP) PO SCH (21:15)
[2018-01-01] MEDS: MIRTAZAPINE 15 MG TABLET (FP) PO SCH (21:15)
[2018-01-01] MEDS ORDERED: MELATONIN 5 MG TABLETS PO PRN (22:00)
[2018-01-02] MEDS: GABAPENTIN 300 MG CAPSULE (FP) PO SCH ×3 (06:21→21:16)
[2018-01-02] MEDS: LACTULOSE 20 GM/30 ML UDC (FOR ORAL USE ONLY) PO SCH ×3 (06:23→21:16)
[2018-01-02 10:00] LABS: CHLORIDE 109 mmol/L (98-107); POTASSIUM 3.8 mmol/L (3.5-5.1); SODIUM 142 mmol/L (136-145)
[2018-01-02] MEDS: PRENATAL VITAMINS W/ FOLIC ACID TABLET (FP) PO SCH (10:00)
[2018-01-02] MEDS: PANTOPRAZOLE 40 MG TABLET (FP) PO SCH (10:00)
[2018-01-02] MEDS: NICOTINE 21 MG/24 HOURS TOPICAL PATCH TD SCH (10:01)
[2018-01-02 10:42] LABS: ANION GAP 11 (8-16); BLOOD UREA NITROGEN 7 mg/dL (7-18); CALCIUM 9.1 mg/dL (8.5-10.1); CO2 22 mmol/L (21-32); CREATININE 0.7 mg/dL (0.7-1.3); GLUCOSE,RANDOM 132 mg/dL (74-106)
[2018-01-02] MEDS: VENLAFAXINE HCL 75 MG E.R. CAPSULES (FP) PO SCH (11:25)
[2018-01-02] MEDS: VENLAFAXINE HCL 150 MG E.R. CAPSULE PO SCH (11:26)
[2018-01-02] MEDS: MIRTAZAPINE 15 MG TABLET (FP) PO SCH (21:16)
[2018-01-02] MEDS: THIAMINE HCL 100 MG TABLET (FP) PO SCH (21:16)
[2018-01-02] MEDS: hydrOXYzine PAMOATE 50 MG CAPSULE (FP) PO PRN (22:53)
[2018-01-03] MEDS: GABAPENTIN 300 MG CAPSULE (FP) PO SCH ×3 (06:19→21:27)
[2018-01-03] MEDS: LACTULOSE 20 GM/30 ML UDC (FOR ORAL USE ONLY) PO SCH ×3 (06:19→21:27)
[2018-01-03] MEDS: VENLAFAXINE HCL 75 MG E.R. CAPSULES (FP) PO SCH (09:52)
[2018-01-03] MEDS: PRENATAL VITAMINS W/ FOLIC ACID TABLET (FP) PO SCH (09:53)
[2018-01-03] MEDS: PANTOPRAZOLE 40 MG TABLET (FP) PO SCH (09:53)
[2018-01-03] MEDS: NICOTINE 21 MG/24 HOURS TOPICAL PATCH TD SCH (09:53)
[2018-01-03] MEDS: VENLAFAXINE HCL 150 MG E.R. CAPSULE PO SCH (09:53)
[2018-01-03] MEDS: NICOTINE POLACRILEX 2 MG GUM BUC PRN (20:10)
[2018-01-03] MEDS: MIRTAZAPINE 15 MG TABLET (FP) PO SCH (21:27)
[2018-01-03] MEDS: THIAMINE HCL 100 MG TABLET (FP) PO SCH (21:27)
[2018-01-04] MEDS: GABAPENTIN 300 MG CAPSULE (FP) PO SCH ×3 (06:33→21:15)
[2018-01-04] MEDS: LACTULOSE 20 GM/30 ML UDC (FOR ORAL USE ONLY) PO SCH ×3 (06:37→21:15)
[2018-01-04] MEDS: PANTOPRAZOLE 40 MG TABLET (FP) PO SCH (09:57)
[2018-01-04] MEDS: NICOTINE 21 MG/24 HOURS TOPICAL PATCH TD SCH (09:59)
[2018-01-04] MEDS: PRENATAL VITAMINS W/ FOLIC ACID TABLET (FP) PO SCH (09:59)
[2018-01-04] MEDS: VENLAFAXINE HCL 150 MG E.R. CAPSULE PO SCH (10:00)
[2018-01-04] MEDS: VENLAFAXINE HCL 75 MG E.R. CAPSULES (FP) PO SCH (10:03)
[2018-01-04] MEDS: MIRTAZAPINE 15 MG TABLET (FP) PO SCH (21:15)
[2018-01-04] MEDS: THIAMINE HCL 100 MG TABLET (FP) PO SCH (21:15)
[2018-01-04] MEDS: NICOTINE POLACRILEX 2 MG GUM BUC PRN (21:16)
[2018-01-04] MEDS: hydrOXYzine PAMOATE 50 MG CAPSULE (FP) PO PRN (23:04)
[2018-01-05] MEDS: GABAPENTIN 300 MG CAPSULE (FP) PO SCH ×3 (06:34→21:15)
[2018-01-05] MEDS: LACTULOSE 20 GM/30 ML UDC (FOR ORAL USE ONLY) PO SCH ×3 (06:35→21:16)
[2018-01-05] MEDS: NICOTINE POLACRILEX 2 MG GUM BUC PRN ×2 (08:49→18:06)
[2018-01-05] MEDS: VENLAFAXINE HCL 75 MG E.R. CAPSULES (FP) PO SCH (10:11)
[2018-01-05] MEDS: PANTOPRAZOLE 40 MG TABLET (FP) PO SCH (10:11)
[2018-01-05] MEDS: PRENATAL VITAMINS W/ FOLIC ACID TABLET (FP) PO SCH (10:11)
[2018-01-05] MEDS: VENLAFAXINE HCL 150 MG E.R. CAPSULE PO SCH (10:12)
[2018-01-05] MEDS: NICOTINE 21 MG/24 HOURS TOPICAL PATCH TD SCH (10:12)
[2018-01-05] MEDS ORDERED: IBUPROFEN 400 MG TABLET (FP) PO PRN (12:42)
--- NOTE | 2018-01-05 12:43 | PN ---
S Progress Note Note: Patient requested higher dose of Ibuprofen due to LBP. Ambulates without difficulty. Will order Motrin 800mg every 8 hours prn. Continue to monitor clinically.
[2018-01-05] MEDS: IBUPROFEN 400 MG TABLET (FP) PO PRN (16:42)
[2018-01-05] MEDS: MIRTAZAPINE 15 MG TABLET (FP) PO SCH (21:15)
[2018-01-05] MEDS: THIAMINE HCL 100 MG TABLET (FP) PO SCH (21:15)
[2018-01-05] MEDS: hydrOXYzine PAMOATE 50 MG CAPSULE (FP) PO PRN (22:41)
[2018-01-06] MEDS: LACTULOSE 20 GM/30 ML UDC (FOR ORAL USE ONLY) PO SCH ×3 (06:27→21:20)
[2018-01-06] MEDS: GABAPENTIN 300 MG CAPSULE (FP) PO SCH ×3 (06:27→21:20)
[2018-01-06] MEDS: PRENATAL VITAMINS W/ FOLIC ACID TABLET (FP) PO SCH (10:27)
[2018-01-06] MEDS: PANTOPRAZOLE 40 MG TABLET (FP) PO SCH (10:27)
[2018-01-06] MEDS: VENLAFAXINE HCL 75 MG E.R. CAPSULES (FP) PO SCH (10:27)
[2018-01-06] MEDS: VENLAFAXINE HCL 150 MG E.R. CAPSULE PO SCH (10:28)
[2018-01-06] MEDS: NICOTINE 21 MG/24 HOURS TOPICAL PATCH TD SCH (10:28)
[2018-01-06] MEDS: IBUPROFEN 400 MG TABLET (FP) PO PRN ×2 (12:35→21:20)
[2018-01-06] MEDS: NICOTINE POLACRILEX 2 MG GUM BUC PRN (12:37)
[2018-01-06] MEDS: MIRTAZAPINE 15 MG TABLET (FP) PO SCH (21:20)
[2018-01-06] MEDS: THIAMINE HCL 100 MG TABLET (FP) PO SCH (21:20)
[2018-01-07] MEDS: GABAPENTIN 300 MG CAPSULE (FP) PO SCH ×3 (06:23→21:12)
[2018-01-07] MEDS: LACTULOSE 20 GM/30 ML UDC (FOR ORAL USE ONLY) PO SCH ×3 (06:23→21:12)
[2018-01-07] MEDS: PRENATAL VITAMINS W/ FOLIC ACID TABLET (FP) PO SCH (10:33)
[2018-01-07] MEDS: PANTOPRAZOLE 40 MG TABLET (FP) PO SCH (10:33)
[2018-01-07] MEDS: VENLAFAXINE HCL 75 MG E.R. CAPSULES (FP) PO SCH (10:33)
[2018-01-07] MEDS: IBUPROFEN 400 MG TABLET (FP) PO PRN (10:33)
[2018-01-07] MEDS: NICOTINE 21 MG/24 HOURS TOPICAL PATCH TD SCH (10:35)
[2018-01-07] MEDS: VENLAFAXINE HCL 150 MG E.R. CAPSULE PO SCH (10:36)
[2018-01-07] MEDS: MIRTAZAPINE 15 MG TABLET (FP) PO SCH (21:12)
[2018-01-07] MEDS: THIAMINE HCL 100 MG TABLET (FP) PO SCH (21:12)
[2018-01-08] MEDS: GABAPENTIN 300 MG CAPSULE (FP) PO SCH ×3 (06:06→21:26)
[2018-01-08] MEDS: LACTULOSE 20 GM/30 ML UDC (FOR ORAL USE ONLY) PO SCH ×3 (06:06→21:27)
[2018-01-08] MEDS: MENTHOL/PHENOL 1 EACH UD MM PRN ×2 (06:06→22:54)
[2018-01-08] MEDS: NICOTINE POLACRILEX 2 MG GUM BUC PRN (10:10)
[2018-01-08] MEDS: PANTOPRAZOLE 40 MG TABLET (FP) PO SCH (10:10)
[2018-01-08] MEDS: NICOTINE 21 MG/24 HOURS TOPICAL PATCH TD SCH (10:10)
[2018-01-08] MEDS: VENLAFAXINE HCL 75 MG E.R. CAPSULES (FP) PO SCH (10:10)
[2018-01-08] MEDS: PRENATAL VITAMINS W/ FOLIC ACID TABLET (FP) PO SCH (10:10)
[2018-01-08] MEDS: VENLAFAXINE HCL 150 MG E.R. CAPSULE PO SCH (10:12)
[2018-01-08] MEDS: IBUPROFEN 400 MG TABLET (FP) PO PRN (12:04)
--- NOTE | 2018-01-08 12:44 | PN ---
S Progress Note Note: Vital Signs Temperature 98.1 F 01/08/18 06:57 Pulse Rate 80 01/08/18 06:57 Respiratory Rate 18 01/08/18 06:57 Blood Pressure 128/72 01/08/18 06:57 O2 Sat by Pulse Oximetry (%) Laboratory Last Values Sodium 142 mmol/L (136-145) 01/02/18 08:30 Potassium 3.8 mmol/L (3.5-5.1) 01/02/18 08:30 Chloride 109 mmol/L (98-107) H 01/02/18 08:30 Carbon Dioxide 22 mmol/L (21-32) D 01/02/18 08:30 Anion Gap 11 (8-16) 01/02/18 08:30 BUN 7 mg/dL (7-18) 01/02/18 08:30 Creatinine 0.7 mg/dL (0.7-1.3) 01/02/18 08:30 Random Glucose 132 mg/dL (74-106) H D 01/02/18 08:30 Calcium 9.1 mg/dL (8.5-10.1) 01/02/18 08:30 Labs reviewed with patient. 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
[2018-01-08] MEDS: THIAMINE HCL 100 MG TABLET (FP) PO SCH (21:26)
[2018-01-08] MEDS: MIRTAZAPINE 15 MG TABLET (FP) PO SCH (21:26)
[2018-01-09] MEDS: GABAPENTIN 300 MG CAPSULE (FP) PO SCH ×3 (06:19→21:23)
[2018-01-09] MEDS: LACTULOSE 20 GM/30 ML UDC (FOR ORAL USE ONLY) PO SCH ×3 (06:21→21:24)
[2018-01-09] MEDS: MENTHOL/PHENOL 1 EACH UD MM PRN ×3 (06:21→21:25)
[2018-01-09] MEDS: PANTOPRAZOLE 40 MG TABLET (FP) PO SCH (09:58)
[2018-01-09] MEDS: PRENATAL VITAMINS W/ FOLIC ACID TABLET (FP) PO SCH (09:58)
[2018-01-09] MEDS: VENLAFAXINE HCL 150 MG E.R. CAPSULE PO SCH (09:59)
[2018-01-09] MEDS: VENLAFAXINE HCL 75 MG E.R. CAPSULES (FP) PO SCH (09:59)
[2018-01-09] MEDS: NICOTINE 21 MG/24 HOURS TOPICAL PATCH TD SCH (09:59)
[2018-01-09] MEDS: IBUPROFEN 400 MG TABLET (FP) PO PRN ×2 (13:11→21:26)
[2018-01-09] MEDS: MIRTAZAPINE 15 MG TABLET (FP) PO SCH (21:23)
[2018-01-09] MEDS: THIAMINE HCL 100 MG TABLET (FP) PO SCH (21:24)
[2018-01-10] MEDS: LACTULOSE 20 GM/30 ML UDC (FOR ORAL USE ONLY) PO SCH ×3 (06:29→21:08)
[2018-01-10] MEDS: GABAPENTIN 300 MG CAPSULE (FP) PO SCH ×3 (06:29→21:09)
[2018-01-10] MEDS: IBUPROFEN 400 MG TABLET (FP) PO PRN ×2 (06:30→14:48)
[2018-01-10] MEDS: MENTHOL/PHENOL 1 EACH UD MM PRN ×2 (06:31→14:49)
[2018-01-10] MEDS: PRENATAL VITAMINS W/ FOLIC ACID TABLET (FP) PO SCH (09:57)
[2018-01-10] MEDS: NICOTINE 21 MG/24 HOURS TOPICAL PATCH TD SCH (09:57)
[2018-01-10] MEDS: PANTOPRAZOLE 40 MG TABLET (FP) PO SCH (09:57)
[2018-01-10] MEDS: VENLAFAXINE HCL 75 MG E.R. CAPSULES (FP) PO SCH (09:57)
[2018-01-10] MEDS: THIAMINE HCL 100 MG TABLET (FP) PO SCH (21:08)
[2018-01-10] MEDS: MIRTAZAPINE 15 MG TABLET (FP) PO SCH (21:09)
[2018-01-11] MEDS: LACTULOSE 20 GM/30 ML UDC (FOR ORAL USE ONLY) PO SCH ×2 (06:40→14:27)
[2018-01-11] MEDS: GABAPENTIN 300 MG CAPSULE (FP) PO SCH ×2 (06:40→14:27)
[2018-01-11] MEDS: IBUPROFEN 400 MG TABLET (FP) PO PRN ×2 (06:41→14:48)
[2018-01-11] MEDS: VENLAFAXINE HCL 75 MG E.R. CAPSULES (FP) PO SCH (10:05)
[2018-01-11] MEDS: PANTOPRAZOLE 40 MG TABLET (FP) PO SCH (10:05)
[2018-01-11] MEDS: PRENATAL VITAMINS W/ FOLIC ACID TABLET (FP) PO SCH (10:05)
[2018-01-11] MEDS: NICOTINE 21 MG/24 HOURS TOPICAL PATCH TD SCH (10:05)
[2018-01-11] MEDS: NICOTINE POLACRILEX 2 MG GUM BUC PRN (14:48)
[2018-01-12] MEDS: THIAMINE HCL 100 MG TABLET (FP) PO SCH ×2 (00:21→21:09)
[2018-01-12] MEDS: GABAPENTIN 300 MG CAPSULE (FP) PO SCH ×4 (00:21→21:09)
[2018-01-12] MEDS: MIRTAZAPINE 15 MG TABLET (FP) PO SCH ×2 (00:21→21:09)
[2018-01-12] MEDS: LACTULOSE 20 GM/30 ML UDC (FOR ORAL USE ONLY) PO SCH ×4 (00:21→21:09)
[2018-01-12] MEDS: IBUPROFEN 400 MG TABLET (FP) PO PRN (06:20)
[2018-01-12] MEDS: PRENATAL VITAMINS W/ FOLIC ACID TABLET (FP) PO SCH (09:53)
[2018-01-12] MEDS: PANTOPRAZOLE 40 MG TABLET (FP) PO SCH (09:53)
[2018-01-12] MEDS: NICOTINE 21 MG/24 HOURS TOPICAL PATCH TD SCH (09:53)
[2018-01-12] MEDS: VENLAFAXINE HCL 75 MG E.R. CAPSULES (FP) PO SCH (09:53)
[2018-01-12] MEDS: LIDOCAINE 5% TOPICAL PATCH TP SCH (15:38)
[2018-01-12] MEDS: LIDOCAINE PATCH REMOVAL MC SCH (21:10)
[2018-01-13] MEDS: LACTULOSE 20 GM/30 ML UDC (FOR ORAL USE ONLY) PO SCH ×3 (06:19→21:26)
[2018-01-13] MEDS: GABAPENTIN 300 MG CAPSULE (FP) PO SCH ×3 (06:19→21:25)
[2018-01-13] MEDS: PRENATAL VITAMINS W/ FOLIC ACID TABLET (FP) PO SCH (09:14)
[2018-01-13] MEDS: PANTOPRAZOLE 40 MG TABLET (FP) PO SCH (09:14)
[2018-01-13] MEDS: IBUPROFEN 400 MG TABLET (FP) PO PRN (09:15)
[2018-01-13] MEDS: NICOTINE 21 MG/24 HOURS TOPICAL PATCH TD SCH (09:15)
[2018-01-13] MEDS: LIDOCAINE 5% TOPICAL PATCH TP SCH (09:15)
[2018-01-13] MEDS: VENLAFAXINE HCL 75 MG E.R. CAPSULES (FP) PO SCH (09:15)
[2018-01-13] MEDS: MIRTAZAPINE 15 MG TABLET (FP) PO SCH (21:25)
[2018-01-13] MEDS: THIAMINE HCL 100 MG TABLET (FP) PO SCH (21:25)
[2018-01-13] MEDS: LIDOCAINE PATCH REMOVAL MC SCH (21:26)
[2018-01-14] MEDS: GABAPENTIN 300 MG CAPSULE (FP) PO SCH ×3 (06:30→21:10)
[2018-01-14] MEDS: LACTULOSE 20 GM/30 ML UDC (FOR ORAL USE ONLY) PO SCH ×3 (06:30→21:10)
[2018-01-14] MEDS: VENLAFAXINE HCL 75 MG E.R. CAPSULES (FP) PO SCH (10:06)
[2018-01-14] MEDS: PRENATAL VITAMINS W/ FOLIC ACID TABLET (FP) PO SCH (10:06)
[2018-01-14] MEDS: PANTOPRAZOLE 40 MG TABLET (FP) PO SCH (10:07)
[2018-01-14] MEDS: NICOTINE 21 MG/24 HOURS TOPICAL PATCH TD SCH (10:09)
[2018-01-14] MEDS: LIDOCAINE 5% TOPICAL PATCH TP SCH (10:09)
--- NOTE | 2018-01-14 13:26 | PN ---
Psychiatric Progress Note Vital Signs: Vital Signs Period Temp Pulse Resp BP Sys/Sood Pulse Ox Last 24 Hr 97.4 F 70 18-18 106/61 Date of Session: 01/14/18 Chief Complaint:: Ill complete this program tomorrow and i want to restart Naltrexone again." HPI: Patient addressed Alcohol dependence and Cannabis abuse comorbid with Substance induced mood disorder. ROS: H/O Gastric bleeding Current Medications: Active Medications Generic Name Dose Route Start Last Admin Trade Name Freq PRN Reason Stop Dose Admin Al Hydroxide/Mg Hydroxide 30 ml 01/01/18 13:50 Mylanta Oral Suspension - PO Q6H PRN DYSPEPSIA Eucalyptus/Menthol/Phenol/Sorbitol 1 each 01/01/18 13:50 01/10/18 14:49 Cepastat Lozenge - MM 1 each Q4H PRN Administration SORE THROAT Gabapentin 300 mg 01/01/18 22:00 01/14/18 06:30 Neurontin - PO 300 mg TID OLY Administration Guaifenesin 10 ml 01/01/18 13:50 Robitussin Dm - PO Q6H PRN COUGH Hydroxyzine Pamoate 50 mg 01/01/18 13:50 01/05/18 22:41 Vistaril - PO 50 mg Q4H PRN Administration AGITATION Ibuprofen 800 mg 01/05/18 14:21 01/13/18 09:15 Motrin - PO 800 mg Q8H PRN Administration PAIN LEVEL 7 - 10 Lactulose 15 gm 01/01/18 22:00 01/14/18 06:30 Cephulac (Oral Use) PO 15 gm TID OLY Administration Lidocaine 1 patch 01/12/18 14:15 01/14/18 10:09 Lidoderm Patch - TP 1 patch DAILY OLY Administration Loperamide HCl 4 mg 01/01/18 13:50 Imodium - PO Q6H PRN DIARRHEA Magnesium Citrate 300 ml 01/01/18 13:50 Citroma - PO Q48H PRN CONSTIPATION Magnesium Hydroxide 30 ml 01/01/18 13:50 Milk Of Magnesia - PO DAILY PRN CONSTIPATION Melatonin 5 mg 01/01/18 22:00 Melatonin PO HS PRN INSOMNIA Mirtazapine 45 mg 01/01/18 22:00 01/13/18 21:25 Remeron - PO 45 mg HS OLY Administration Miscellaneous 1 each 01/12/18 22:00 01/13/18 21:26 Lidoderm Patch Removal MC 1 each DAILY@2200 OLY Administration Nicotine 21 mg 01/02/18 10:00 01/14/18 10:09 Nicoderm Patch - TD 21 mg DAILY OLY Administration Nicotine Polacrilex 2 mg 01/01/18 13:51 01/11/18 14:48 Nicorette Gum - BUC 2 mg Q2H PRN Administration NICOTINE REPLACEMENT RX Pantoprazole Sodium 40 mg 01/02/18 10:00 01/14/18 10:07 Protonix - PO 40 mg DAILY OLY Administration Multivit/Folic Acid/Iron 1 tab 01/02/18 10:00 01/14/18 10:06 Vitamins ([facility]) - PO 1 tab DAILY OLY Administration Pseudoephedrine/Triprolidine 1 combo 01/01/18 13:50 Actifed - PO TID PRN NASAL CONGESTION Thiamine HCl 100 mg 01/01/18 22:00 01/13/18 21:25 Vitamin B1 - PO 100 mg HS OLY Administration Venlafaxine HCl 225 mg 01/02/18 10:55 01/14/18 10:06 Effexor Xr - PO 225 mg DAILY OLY Administration Current Side Effect: No Lab tests ordered: No Lab tests reviewed: Yes Provider note:: Chart was revuewed,patient was seen in my office today regarding Naltrexone continuation discharge.Properties of Naltrexone has been discussed with patient including side effects,benefits and dose adjustment.Naltrexone 50 mg po daily will be restarted tomorrow.patient will complete this program tomorrow.He has met his treatment ggoals and will continue to address his issues on outpatient basis at [facility] rehabilitation intensive outpatient program.Patient will continue Effexor XR 225 mg po daily,neurontin 300 mg po tid and Remeron 45 mg po hs.scripts for 30 days provided.Supportive therapy proivided focusing on relapse prevention. Patient is stable for discharge tomorrow 01/15/18. Total face to face time:: 30 Mental Status Exam - Mental Status Exam Alert and Oriented to: Time, Place, Person Cognitive Function: Grossly Intact Patient Appearance: Well Groomed Mood: Sad Affect: Mood Congruent Patient Behavior: Cooperative Speech Pattern: Clear Voice Loudness: Normal Thought Process: Goal Oriented Thought Disorder: Not Present Hallucinations: Denies Suicidal Ideation: Denies Homicidal Ideation: Denies Insight/Judgement: Fair Sleep: Fair Appetite: Good Muscle strength/Tone: Normal Gait/Station: Normal Psychiatric Treatment Plan - Problem List (1) Alcohol dependence Current Visit: Yes (2) Cannabis abuse Current Visit: Yes (3) Nicotine dependence Current Visit: Yes (4) Substance-induced anxiety disorder Current Visit: Yes (5) Esophageal varices with bleeding Current Visit: Yes (6) GI bleeding Current Visit: Yes
[2018-01-14] MEDS: THIAMINE HCL 100 MG TABLET (FP) PO SCH (21:10)
[2018-01-14] MEDS: MIRTAZAPINE 15 MG TABLET (FP) PO SCH (21:10)
[2018-01-14] MEDS: LIDOCAINE PATCH REMOVAL MC SCH (21:11)
[2018-01-14] MEDS: hydrOXYzine PAMOATE 50 MG CAPSULE (FP) PO PRN (21:58)
[2018-01-15] MEDS: IBUPROFEN 400 MG TABLET (FP) PO PRN (06:12)
[2018-01-15] MEDS: LACTULOSE 20 GM/30 ML UDC (FOR ORAL USE ONLY) PO SCH (06:12)
[2018-01-15] MEDS: GABAPENTIN 300 MG CAPSULE (FP) PO SCH (06:12)
[2018-01-15 06:27] VITALS: BP 152/88; PULSE 76; TEMP 97.8
[2018-01-15] MEDS: PRENATAL VITAMINS W/ FOLIC ACID TABLET (FP) PO SCH (10:07)
[2018-01-15] MEDS: PANTOPRAZOLE 40 MG TABLET (FP) PO SCH (10:07)
[2018-01-15] MEDS: VENLAFAXINE HCL 75 MG E.R. CAPSULES (FP) PO SCH (10:07)
[2018-01-15] MEDS: LIDOCAINE 5% TOPICAL PATCH TP SCH (10:08)
[2018-01-15] MEDS: NICOTINE 21 MG/24 HOURS TOPICAL PATCH TD SCH (10:08)
[2018-01-15] MEDS ORDERED: NALTREXONE HCL 50 MG TABLET PO SCH (10:45)
== END 2018-01-15 10:55 | disposition home or self-care (01) | DRG 895 ==
LOC: YASAS 13:23 → Y5N 13:24
PROVIDERS: ADMIT Psychiatry & Neurology Psychiatry; ATTEND Psychiatry & Neurology Psychiatry
PROC: HZ42ZZZ Group Counseling for Substance Abuse Treatment, Cognitive-Behavioral (ICD-10-PCS; principal; 2018-01-01)
DX: F10.20 Alcohol dependence, uncomplicated (principal); I85.01 Esophageal varices with bleeding; F19.282 Other psychoactive substance dependence with psychoactive substance-induced sleep disorder; K92.2 Gastrointestinal hemorrhage, unspecified; F12.20 Cannabis dependence, uncomplicated; F17.210 Nicotine dependence, cigarettes, uncomplicated; F19.24 Other psychoactive substance dependence with psychoactive substance-induced mood disorder; F41.1 Generalized anxiety disorder; F41.9 Anxiety disorder, unspecified; K70.30 Alcoholic cirrhosis of liver without ascites; K21.9 Gastro-esophageal reflux disease without esophagitis; Z86.69 Personal history of other diseases of the nervous system and sense organs
CPT/HCPCS: 36415; 80048

== ENCOUNTER 2019-06-19 13:00 | Inpatient (IN) | payer OTHER ==
[2019-06-19 13:22] VITALS: BMI 27.0
--- NOTE | 2019-06-19 16:07 | HP ---
CIWA Score Nausea/Vomitin Muscle Tremors: 2 Anxiety: 2 Agitation: 2 Paroxysmal Sweats: 2 Orientation: 0-Oriented Tacttile Disturbances: 2-Mild Itch/Numbness/Burn Auditory Disturbances: 1-Very Mild Visual Disturbances: 1-Very Mild Sensitivity Headache: 2-Mild CIWA-Ar Total Score: 16 - Admission Criteria OASAS Guidelines: Admission for Medically Managed Detox: Requires at least one of the followin. CIWA greater than 12 2. Seizures within the past 24 hours 3. Delirium tremens within the past 24 hours 4. Hallucinations within the past 24 hours 5. Acute intervention needed for co occurring medical disorder 6. Acute intervention needed for co occurring psychiatric disorder 7. Severe withdrawal that cannot be handled at a lower level of care (continued vomiting, continued diarrhea, abnormal vital signs) requiring intravenous medication and/or fluids 8. Patient presents the following: CIWA greater than 12 Admission Criteria Met: Admission criteria met Admitting History and Physical - Smoking History Smoking history: Current every day smoker Have you smoked in the past 12 months: Yes Aproximately how many cigarettes per day: 10 - Alcohol/Substance Use Hx Alcohol Use: Yes Admission ROS S - [facility] Chief Complaint: I need help Allergies/Adverse Reactions: Allergies Allergy/AdvReac Type Severity Reaction Status Date / Time fish derived Allergy Severe Hives Verified 06/19/19 13:04 No Known Drug Allergies Allergy Verified 01/01/18 13:42 FISH Allergy Severe Hives Uncoded 06/19/19 13:04 History of Present Illness: 53 year old man with alcoholism presents for detox. He has h/o multiple treatments, he reports alcohol related seizures and blackouts. Exam Limitations: No Limitations - Ebola screening Have you traveled outside of the country in the last 21 days: No Have you had contact with anyone from an Ebola affected area: No Have you been sick,other than usual withdrawal symptoms: No Do you have a fever: No - Review of Systems Constitutional: Chills, Loss of Appetite, Changes in sleep, Unintentional Wgt. Loss EENT: reports: Blurred Vision Respiratory: reports: SOB with Exertion Cardiac: reports: Lightheadedness GI: reports: Nausea, Poor Appetite, Abdominal cramping : reports: No Symptoms Reported Musculoskeletal: reports: Back Pain, Joint Pain, Muscle Pain, Muscle Weakness Integumentary: reports: Sweating Neuro: reports: Headache, Numbness, Tremors Endocrine: reports: No Symptoms Reported Hematology: reports: No Symptoms Reported Psychiatric: reports: Anxious, Depressed Other Systems: Reviewed and Negative Patient History - Patient Medical History Hx Anemia: No Hx Asthma: No Hx Chronic Obstructive Pulmonary Disease (COPD): No Hx Cardiac Disorders: No Hx Hypertension: Yes Hx Pacemaker: No HX Cerebrovascular Accident: No Hx Seizures: Yes (alcohol related-last episode was in 2014) Hx Dementia: No Hx Diabetes: No Hx Gastrointestinal Disorders: Yes (GERD) Hx Liver Disease: Yes (cirrhosis) Hx Genitourinary Disorders: No Hx Sexually Transmitted Disorders: No Hx Renal Disease (ESRD): No Hx Thyroid Disease: Yes Hx Human Immunodeficiency Virus (HIV): No Hx Hepatitis C: No Hx Depression: Yes Hx Suicide Attempt: No Hx Bipolar Disorder: No Hx Schizophrenia: No - Patient Surgical History Past Surgical History: No - PPD History Previous Implant?: Yes Documented Results: Negative w/proof Implanted On Prior [facility] Admission?: Yes Date: 12/29/17 Results: 0 mm. PPD to be Administered?: Yes - Smoking Cessation Smoking history: Current every day smoker Have you smoked in the past 12 months: Yes Aproximately how many cigarettes per day: 10 Cigars Per Day: 0 Hx Chewing Tobacco Use: No Initiated information on smoking cessation: Yes 'Breaking Loose' booklet given: 06/19/19 - Substances abused Alcohol Substance route: Oral Frequency: Daily Amount used: 12 (16oz) beers Age of first use: 17 Date of last use: 06/19/19 Admission Physical Exam [facility] - Vital Signs Vital Signs: Vital Signs - 24 hr 06/19/19 13:19 Temperature 907.0 F H Pulse Rate 63 Respiratory 18 Rate Blood Pressure 148/88 - Physical General Appearance: Yes: Within Normal Limits HEENTM: Yes: Hearing grossly Normal, Normocephalic, Pharynx Normal, Tm's normal Respiratory: Yes: Chest Non-Tender, Lungs Clear, Normal Breath Sounds, No Respiratory Distress Neck: Yes: No masses,lesions,Nodules, Supple Breast: Yes: Breast Exam Deferred Cardiology: Yes: Regular Rhythm, Regular Rate, S1, S2 Abdominal: Yes: Normal Bowel Sounds, Non Tender, Soft Genitourinary: Yes: Within Normal Limits Back: Yes: Normal Inspection Musculoskeletal: Yes: full range of Motion, Gait Steady, Pelvis Stable, Back pain, Muscle Pain Extremities: Yes: Tremors 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 NML intact, Fully Oriented, Alert, Normal Mood/ Affect, Normal Response Integumentary: Yes: Clammy Lymphatic: Yes: Within Normal Limits - Diagnostic (1) Nicotine dependence Current Visit: Yes Status: Acute Qualifiers: Nicotine product type: cigarettes Substance use status: uncomplicated Qualified Code(s): F17.210 - Nicotine dependence, cigarettes, uncomplicated (2) Alcohol dependence with uncomplicated withdrawal Current Visit: Yes Status: Acute (3) Alcoholic cirrhosis of liver Current Visit: No Status: Chronic Qualifiers: Ascites presence: without ascites Qualified Code(s): K70.30 - Alcoholic cirrhosis of liver without ascites Cleared for Admission [facility] - Detox or Rehab S Level of Care: Medically Managed Claeared for Rehab Admission: No Breathalyzer - Breathalyzer Breathalyzer: 0.193 Urine Drug Screen - Test Device Lot number: [id number] Expiration date: 02/17/21 - Control Is test valid?: Yes - Results Drug screen NEGATIVE: No Urine drug screen results: THC-Marijuana Inpatient Rehab Admission - Rehab Decision to Admit Inpatient rehab admission?: No
[2019-06-19] MEDS ORDERED: ONDANSETRON *ODT* 4 MG TABLET SL PRN (16:13)
[2019-06-19] MEDS ORDERED: hydrOXYzine PAMOATE 50 MG CAPSULE (FP) PO PRN (16:13)
[2019-06-19] MEDS ORDERED: MENTHOL/PHENOL 1 EACH UD MM PRN (16:13)
[2019-06-19] MEDS ORDERED: MAGNESIUM HYDROX 2400MG/30ML ORAL SUSPENSION 30 ML CUP PO PRN (16:13)
[2019-06-19] MEDS ORDERED: ACETAMINOPHEN 325 MG TABLET (FP) PO PRN ×2 (16:13)
[2019-06-19] MEDS ORDERED: IBUPROFEN 400 MG TABLET (FP) PO PRN (16:13)
[2019-06-19] MEDS ORDERED: METHOCARBAMOL 500 MG TABLET PO PRN (16:13)
[2019-06-19] MEDS ORDERED: LORazepam 1 MG TABLET PO PRN (16:13)
[2019-06-19] MEDS ORDERED: NICOTINE POLACRILEX 2 MG GUM BUC PRN (16:13)
[2019-06-19] MEDS ORDERED: BISMUTH SUBSALICYLATE 524 MG/30 ML UD PO PRN (16:13)
[2019-06-19] MEDS ORDERED: MAGNESIUM CITRATE 300 ML BOTTLE PO PRN (16:13)
[2019-06-19] MEDS ORDERED: MAG HYDROX/AL HYDROX/SIMETH 30 ML UNIT-DOSE CUP PO PRN (16:13)
[2019-06-19] MEDS: LORazepam 2 MG TABLET PO SCH ×2 (17:49→22:20)
[2019-06-19] MEDS: GABAPENTIN 300 MG CAPSULE (FP) PO SCH (22:20)
[2019-06-19] MEDS: THIAMINE HCL 100 MG TABLET (FP) PO SCH (22:20)
[2019-06-19] MEDS: LACTULOSE 20 GM/30 ML UDC (FOR ORAL USE ONLY) PO SCH (22:21)
[2019-06-19] MEDS: MELATONIN 5 MG TABLETS PO PRN (22:21)
[2019-06-20] MEDS: LACTULOSE 20 GM/30 ML UDC (FOR ORAL USE ONLY) PO SCH ×3 (05:49→22:36)
[2019-06-20] MEDS: LORazepam 2 MG TABLET PO SCH ×4 (05:49→22:36)
[2019-06-20] MEDS: GABAPENTIN 300 MG CAPSULE (FP) PO SCH ×3 (05:50→22:36)
[2019-06-20] MEDS ORDERED: LEVOTHYROXINE NA 50 MCG TABLET (FP) PO SCH (07:00)
[2019-06-20] MEDS: PRENATAL VITAMINS W/ FOLIC ACID TABLET (FP) PO SCH (10:18)
[2019-06-20] MEDS: NADOLOL 20 MG TABLET (FP) PO SCH (10:18)
--- NOTE | 2019-06-20 12:09 | PN ---
S CIWA - CIWA Score Nausea/Vomitin-Mild Nausea/No Vomiting Muscle Tremors: 2 Anxiety: 3 Agitation: 4-Moderately Restless Paroxysmal Sweats: 2 Orientation: 0-Oriented Tacttile Disturbances: 0-None Auditory Disturbances: 0-None Visual Disturbances: 0-None Headache: 0-None Present CIWA-Ar Total Score: 12 [facility] Progress Note (SOAP) Subjective: 53 years old male admitted on 06/19/19 for alcohol withdrawal sx management treated with ativan detox regimen patient tolerated well ambulating on hallway social with peers in day room Objective: 06/20/19 12:08 Vital Signs Temperature 97.6 F 06/20/19 09:13 Pulse Rate 61 06/20/19 09:13 Respiratory Rate 18 06/20/19 09:13 Blood Pressure 124/76 06/20/19 09:13 O2 Sat by Pulse Oximetry (%) 06/20/19 12:09 lab pending Assessment: 06/20/19 12:09 alcohol withdrawal sx Plan: continue ativan detox regimen
[2019-06-20 12:38] LABS: HEMATOCRIT 41.7 % (35.4-49); MCH 34.1 pg (25.7-33.7); MCHC 33.6 g/dl (32.0-35.9); MEAN CELL VOLUME 101.6 fl (80-96); MEAN PLT VOLUME 10.4 fl (7.5-11.1); RBC 4.11 M/mm3 (4.00-5.60); RDW 15.9 % (11.9-15.9); WHITE BLOOD COUNT 4.9 K/mm3 (4.0-10.0)
[2019-06-20 12:43] LABS: PLATELET COUNT 20 K/MM3 (134-434)
[2019-06-20 12:44] LABS: ALBUMIN 3.3 g/dl (3.4-5.0); BILIRUBIN,TOTAL 1.1 mg/dL (0.2-1); BLOOD UREA NITROGEN 5.8 mg/dL (7-18); CALCIUM 8.6 mg/dL (8.5-10.1); CREATININE 0.6 mg/dL (0.55-1.3); POTASSIUM 3.7 mmol/L (3.5-5.1); TOT PROT 6.2 g/dl (6.4-8.2)
--- NOTE | 2019-06-20 14:15 | CONSULT ---
[facility] Psychiatric Consult - Data Date of interview: 06/20/19 Admission source: [facility] Identifying data: Patient is a 53 year old single male, without children, unemployed, domiciled, and is supported by [facility]. This is one of multiple admissions for patient. Patient admitted to for alcohol dependence. Substance Abuse History: Smoking Cessation. Smoking history: Current every day smoker. Have you smoked in the past 12 months: Yes. Aproximately how many cigarettes per day: 10. Cigars Per Day: 0. Hx Chewing Tobacco Use: No. Initiated information on smoking cessation: Yes. 'Breaking Loose' booklet given : 06/19/19. - Substances abused. Alcohol. Substance route: Oral. Frequency: Daily. Amount used: 12 (16oz) beers. Age of first use: 17. Date of last use: 06/19/19 Medical History: Significant for cirrhosis of the liver, GERD and history of alcohol withdrawal seizure and GI bleed with endoscopy with sclerotherapy. Psychiatric History: Patient's first psychiatric contact was approximately five years ago after he saw a private psychiatrist due to his history of alcohol dependence. Patient is not currently followed by a psychiatric provider. Reports being prescribed Desvenlafaxine 100mg + gabapentin 300mg TID (pain) + another medication he can't recall. Patient unsure of dosages although reports taking medications everyday. Will contact pharmacy for information. As per previous notes patient has been prescribed celexa 10mg + effexor 225 + remeron 45 in the past. Diagnosis of depression and anxiety. Patient denies history of psychiatric hospitalization and suicide attempt. Physical/Sexual Abuse/Trauma History: denies. Mental Status Exam - Mental Status Exam Alert and Oriented to: Time, Place, Person Cognitive Function: Good Patient Appearance: Well Groomed Mood: Withdrawn Affect: Mood Congruent Patient Behavior: Cooperative Speech Pattern: Clear Voice Loudness: Moderately Soft/Quiet Thought Process: Goal Oriented Thought Disorder: Not Present Hallucinations: Denies Suicidal Ideation: Denies Homicidal Ideation: Denies Insight/Judgement: Poor Sleep: Poorly Appetite: Fair Muscle strength/Tone: Normal Gait/Station: Normal Psychiatric Findings - Problem List ([place] 1, 2,3) (1) Alcohol dependence with uncomplicated withdrawal Current Visit: Yes Status: Acute (2) Nicotine dependence Current Visit: Yes Status: Acute Qualifiers: Nicotine product type: cigarettes Substance use status: uncomplicated Qualified Code(s): F17.210 - Nicotine dependence, cigarettes, uncomplicated (3) Alcohol dependence Current Visit: Yes Status: Acute (4) Substance-induced sleep disorder Current Visit: Yes Status: Acute (5) Depressive disorder Current Visit: Yes Status: Chronic (6) Anxiety disorder Current Visit: Yes Status: Chronic - Initial Treatment Plan Initial Treatment Plan: Psychoeducation provided. Detoxification in progress. [facility] pharmacy contacted at [phone]. As per pharmacy staff patient is prescribed the following medications: Desvenlafaxine 100mg daily (filled on ) +Remeron 30mg HS (filed on 06/02/19). Will order Remeron 30mg HS. Spoke to nursing staff concerning patient's Desvenlafaxine medication. Desvenlafaxine is not carried at current facility. As per patient, his prescription is in his personal belongings. Patient to be taken downstairs tomorrow morning to obtain his medication. Please contact psychiatrist to prescribe medication once it has been obtained.
[2019-06-20] MEDS ORDERED: MIRTAZAPINE 15 MG TABLET (FP) ONE (21:33)
[2019-06-20] MEDS: MIRTAZAPINE 30 MG TABLET (FP) PO SCH (22:36)
[2019-06-20] MEDS: THIAMINE HCL 100 MG TABLET (FP) PO SCH (22:36)
[2019-06-21] MEDS: LORazepam 1 MG TABLET PO SCH ×4 (05:56→22:06)
[2019-06-21] MEDS: GABAPENTIN 300 MG CAPSULE (FP) PO SCH ×3 (05:56→22:03)
[2019-06-21] MEDS: LACTULOSE 20 GM/30 ML UDC (FOR ORAL USE ONLY) PO SCH ×3 (05:57→22:01)
[2019-06-21] MEDS: LEVOTHYROXINE NA 25 MCG TABLET (FP) PO SCH (06:03)
[2019-06-21] MEDS: PRENATAL VITAMINS W/ FOLIC ACID TABLET (FP) PO SCH (10:23)
[2019-06-21] MEDS: NADOLOL 20 MG TABLET (FP) PO SCH (10:33)
--- NOTE | 2019-06-21 11:48 | PN ---
S CIWA - CIWA Score Nausea/Vomitin-Mild Nausea/No Vomiting Muscle Tremors: 2 Anxiety: 2 Agitation: 2 Paroxysmal Sweats: 1-Minimal Palms Moist Orientation: 0-Oriented Tacttile Disturbances: 0-None Auditory Disturbances: 0-None Visual Disturbances: 0-None Headache: 1-Very Mild CIWA-Ar Total Score: 9 [facility] Progress Note (SOAP) Subjective: 53 years old male admitted on 06/19/19 for alcohol withdrawal sx management treated with ativan detox regimen less tremor mild anxiety slept through the night feeling "little better" Objective: 06/21/19 11:47 Vital Signs Temperature 96.8 F L 06/21/19 09:01 Pulse Rate 80 06/21/19 09:01 Respiratory Rate 18 06/21/19 09:01 Blood Pressure 121/79 06/21/19 09:01 O2 Sat by Pulse Oximetry (%) Laboratory Last Values WBC 4.9 K/mm3 (4.0-10.0) 06/20/19 07:50 RBC 4.11 M/mm3 (4.00-5.60) 06/20/19 07:50 Hgb 14.0 GM/dL (11.7-16.9) 06/20/19 07:50 Hct 41.7 % (35.4-49) 06/20/19 07:50 MCV 101.6 fl (80-96) H 06/20/19 07:50 MCH 34.1 pg (25.7-33.7) H D 06/20/19 07:50 MCHC 33.6 g/dl (32.0-35.9) 06/20/19 07:50 RDW 15.9 % (11.9-15.9) D 06/20/19 07:50 Plt Count 20 K/MM3 (134-434) L* D 06/20/19 07:50 MPV 10.4 fl (7.5-11.1) 06/20/19 07:50 Sodium 141 mmol/L (136-145) 06/20/19 07:50 Potassium 3.7 mmol/L (3.5-5.1) 06/20/19 07:50 Chloride 106 mmol/L (98-107) 06/20/19 07:50 Carbon Dioxide 29 mmol/L (21-32) 06/20/19 07:50 Anion Gap 6 MMOL/L (8-16) L 06/20/19 07:50 BUN 5.8 mg/dL (7-18) L 06/20/19 07:50 Creatinine 0.6 mg/dL (0.55-1.3) 06/20/19 07:50 Est GFR (CKD-EPI)AfAm 133.04 06/20/19 07:50 Est GFR (CKD-EPI)NonAf 114.79 06/20/19 07:50 Random Glucose 94 mg/dL (74-106) 06/20/19 07:50 Calcium 8.6 mg/dL (8.5-10.1) 06/20/19 07:50 Total Bilirubin 1.1 mg/dL (0.2-1) H 06/20/19 07:50 AST 94 U/L (15-37) H 06/20/19 07:50 ALT 35 U/L (13-61) 06/20/19 07:50 Alkaline Phosphatase 85 U/L (45-117) 06/20/19 07:50 Total Protein 6.2 g/dl (6.4-8.2) L 06/20/19 07:50 Albumin 3.3 g/dl (3.4-5.0) L 06/20/19 07:50 lab noted discuss alcohol related ast elevation Assessment: 06/21/19 11:47 alcohol withdrawal sx Plan: continue ativan detox regimen
--- NOTE | 2019-06-21 15:25 | PN ---
[facility] Progress Note Note: Psychiatry Attending's note (follow-up) : Called to enter order for desvenlafaxine. Chart reviewed. Bottle brought in by patient. Seen. Dated 06/02/19. Contents verified by pharmacy. Consult note of 06/20/19 by HARJINDER Roldan : appreciated. Met with the patient. Side effects/benefits discussed. Made aware of potential for seizures and hypertension. EKG requested. STAT. Prior to initiation of treatment. Plan : Desvenlafaxine 100 mg po daily. Ordered. Informed consent provided by patient (verbal). Monitor response.
[2019-06-21] MEDS ORDERED: MIRTAZAPINE 15 MG TABLET (FP) ONE (20:27)
[2019-06-21] MEDS: THIAMINE HCL 100 MG TABLET (FP) PO SCH (22:03)
[2019-06-21] MEDS: MIRTAZAPINE 30 MG TABLET (FP) PO SCH (22:06)
[2019-06-22] MEDS ORDERED: LORazepam 0.5 MG TABLET PO PRN
[2019-06-22] MEDS: MELATONIN 5 MG TABLETS PO PRN (01:22)
[2019-06-22] MEDS: LORazepam 0.5 MG TABLET PO SCH ×4 (05:12→22:05)
[2019-06-22] MEDS: LACTULOSE 20 GM/30 ML UDC (FOR ORAL USE ONLY) PO SCH ×3 (05:12→22:03)
[2019-06-22] MEDS: GABAPENTIN 300 MG CAPSULE (FP) PO SCH ×3 (05:13→22:03)
[2019-06-22] MEDS: LEVOTHYROXINE NA 25 MCG TABLET (FP) PO SCH (06:41)
--- NOTE | 2019-06-22 09:22 | EKG ---
Test Reason : Blood Pressure : / mmHG Vent. Rate : 054 BPM Atrial Rate : 054 BPM P-R Int : 180 ms QRS Dur : 090 ms QT Int : 450 ms P-R-T Axes : 024 -31 037 degrees QTc Int : 426 ms SINUS BRADYCARDIA LEFT AXIS DEVIATION ABNORMAL ECG WHEN COMPARED WITH ECG OF 27-DEC-2017 17:42, NO SIGNIFICANT CHANGE WAS FOUND Confirmed by MD Sin, Bryan ([id number]) on 06/22/2019 9:21:58 AM Referred By: Confirmed By:Bryan Vogt MD
[2019-06-22] MEDS: DESVENLAFAXINE 100 MG PO SCH (10:06)
[2019-06-22] MEDS: NADOLOL 20 MG TABLET (FP) PO SCH (10:06)
[2019-06-22] MEDS: PRENATAL VITAMINS W/ FOLIC ACID TABLET (FP) PO SCH (10:07)
--- NOTE | 2019-06-22 12:12 | PN ---
S CIWA - CIWA Score Nausea/Vomitin-No Nausea/No Vomiting Muscle Tremors: 1-None Visible, but [place] Anxiety: 2 Agitation: 1-Slight > Activity Paroxysmal Sweats: No Perspiration Orientation: 0-Oriented Tacttile Disturbances: 0-None Auditory Disturbances: 0-None Visual Disturbances: 0-None Headache: 0-None Present CIWA-Ar Total Score: 4 [facility] Progress Note (SOAP) Subjective: 53 years old male admitted on 06/19/19 for alcohol withdrawal sx management treated with ativan detox regimen feeling better today slept through the night less tremor mild anxiety Objective: 06/22/19 12:16 Vital Signs Temperature 97.5 F L 06/22/19 09:15 Pulse Rate 61 06/22/19 09:15 Respiratory Rate 18 06/22/19 09:15 Blood Pressure 143/89 06/22/19 09:15 O2 Sat by Pulse Oximetry (%) Laboratory Last Values WBC 4.9 K/mm3 (4.0-10.0) 06/20/19 07:50 RBC 4.11 M/mm3 (4.00-5.60) 06/20/19 07:50 Hgb 14.0 GM/dL (11.7-16.9) 06/20/19 07:50 Hct 41.7 % (35.4-49) 06/20/19 07:50 MCV 101.6 fl (80-96) H 06/20/19 07:50 MCH 34.1 pg (25.7-33.7) H D 06/20/19 07:50 MCHC 33.6 g/dl (32.0-35.9) 06/20/19 07:50 RDW 15.9 % (11.9-15.9) D 06/20/19 07:50 Plt Count 20 K/MM3 (134-434) L* D 06/20/19 07:50 MPV 10.4 fl (7.5-11.1) 06/20/19 07:50 Sodium 141 mmol/L (136-145) 06/20/19 07:50 Potassium 3.7 mmol/L (3.5-5.1) 06/20/19 07:50 Chloride 106 mmol/L (98-107) 06/20/19 07:50 Carbon Dioxide 29 mmol/L (21-32) 06/20/19 07:50 Anion Gap 6 MMOL/L (8-16) L 06/20/19 07:50 BUN 5.8 mg/dL (7-18) L 06/20/19 07:50 Creatinine 0.6 mg/dL (0.55-1.3) 06/20/19 07:50 Est GFR (CKD-EPI)AfAm 133.04 06/20/19 07:50 Est GFR (CKD-EPI)NonAf 114.79 06/20/19 07:50 Random Glucose 94 mg/dL (74-106) 06/20/19 07:50 Calcium 8.6 mg/dL (8.5-10.1) 06/20/19 07:50 Total Bilirubin 1.1 mg/dL (0.2-1) H 06/20/19 07:50 AST 94 U/L (15-37) H 06/20/19 07:50 ALT 35 U/L (13-61) 06/20/19 07:50 Alkaline Phosphatase 85 U/L (45-117) 06/20/19 07:50 Total Protein 6.2 g/dl (6.4-8.2) L 06/20/19 07:50 Albumin 3.3 g/dl (3.4-5.0) L 06/20/19 07:50 06/22/19 12:18 lab noted low plt no motrin Assessment: 06/22/19 12:19 alcohol withdrawal sx Plan: continue ativan detox regimen
[2019-06-22] MEDS ORDERED: MIRTAZAPINE 15 MG TABLET (FP) ONE (19:43)
[2019-06-22] MEDS ORDERED: amLODIPine BESYLATE 5 MG TABLET (FP) PO SCH (22:00)
[2019-06-22] MEDS: FAMOTIDINE 20 MG TABLET PO SCH (22:03)
[2019-06-22] MEDS: THIAMINE HCL 100 MG TABLET (FP) PO SCH (22:04)
[2019-06-22] MEDS: MIRTAZAPINE 30 MG TABLET (FP) PO SCH (22:04)
[2019-06-23] MEDS ORDERED: LORazepam 0.5 MG TABLET PO ONE (05:00)
[2019-06-23] MEDS: GABAPENTIN 300 MG CAPSULE (FP) PO SCH (05:38)
[2019-06-23] MEDS: LACTULOSE 20 GM/30 ML UDC (FOR ORAL USE ONLY) PO SCH (05:38)
[2019-06-23] MEDS: LEVOTHYROXINE NA 25 MCG TABLET (FP) PO SCH (07:47)
[2019-06-23 09:27] VITALS: BP 134/88; PULSE 60; TEMP 96.5
[2019-06-23] MEDS: FAMOTIDINE 20 MG TABLET PO SCH (09:47)
[2019-06-23] MEDS: PRENATAL VITAMINS W/ FOLIC ACID TABLET (FP) PO SCH (09:47)
[2019-06-23] MEDS: NADOLOL 20 MG TABLET (FP) PO SCH (09:47)
[2019-06-23] MEDS: DESVENLAFAXINE 100 MG PO SCH (09:48)
--- NOTE | 2019-06-23 10:13 | DS ---
[facility] Detox Discharge Summary Admission Date: 06/19/19 Discharge Date: 06/23/19 - History Present History: Alcohol Dependence Additional Comments: 53 years old male admitted on 06/19/19 for alcohol withdrawal sx management treated with ativan detox regimen patient tolerated well alert oriented x 3 cardiac s1s2 regular rate rhythm respiratory clear lung bilaterally on auscultation extremities full range of motion - Physical Exam Results Vital Signs: Vital Signs Temperature 96.5 F L 06/23/19 09:26 Pulse Rate 60 06/23/19 09:26 Respiratory Rate 18 06/23/19 09:26 Blood Pressure 134/88 06/23/19 09:26 O2 Sat by Pulse Oximetry (%) Pertinent Admission Physical Exam Findings: alcohol withdrawal sx Vital Signs Temperature 96.5 F L 06/23/19 09:26 Pulse Rate 60 06/23/19 09:26 Respiratory Rate 18 06/23/19 09:26 Blood Pressure 134/88 06/23/19 09:26 O2 Sat by Pulse Oximetry (%) Laboratory Last Values WBC 4.9 K/mm3 (4.0-10.0) 06/20/19 07:50 RBC 4.11 M/mm3 (4.00-5.60) 06/20/19 07:50 Hgb 14.0 GM/dL (11.7-16.9) 06/20/19 07:50 Hct 41.7 % (35.4-49) 06/20/19 07:50 MCV 101.6 fl (80-96) H 06/20/19 07:50 MCH 34.1 pg (25.7-33.7) H D 06/20/19 07:50 MCHC 33.6 g/dl (32.0-35.9) 06/20/19 07:50 RDW 15.9 % (11.9-15.9) D 06/20/19 07:50 Plt Count 20 K/MM3 (134-434) L* D 06/20/19 07:50 MPV 10.4 fl (7.5-11.1) 06/20/19 07:50 Sodium 141 mmol/L (136-145) 06/20/19 07:50 Potassium 3.7 mmol/L (3.5-5.1) 06/20/19 07:50 Chloride 106 mmol/L (98-107) 06/20/19 07:50 Carbon Dioxide 29 mmol/L (21-32) 06/20/19 07:50 Anion Gap 6 MMOL/L (8-16) L 06/20/19 07:50 BUN 5.8 mg/dL (7-18) L 06/20/19 07:50 Creatinine 0.6 mg/dL (0.55-1.3) 06/20/19 07:50 Est GFR (CKD-EPI)AfAm 133.04 06/20/19 07:50 Est GFR (CKD-EPI)NonAf 114.79 06/20/19 07:50 Random Glucose 94 mg/dL (74-106) 06/20/19 07:50 Calcium 8.6 mg/dL (8.5-10.1) 06/20/19 07:50 Total Bilirubin 1.1 mg/dL (0.2-1) H 06/20/19 07:50 AST 94 U/L (15-37) H 06/20/19 07:50 ALT 35 U/L (13-61) 06/20/19 07:50 Alkaline Phosphatase 85 U/L (45-117) 06/20/19 07:50 Total Protein 6.2 g/dl (6.4-8.2) L 06/20/19 07:50 Albumin 3.3 g/dl (3.4-5.0) L 06/20/19 07:50 RPR Titer Nonreactive (NONREACTIVE) 06/20/19 07:50 lab noted may repeat cbc and ast in rehab - Treatment Hospital Course: Detox Protocol Followed, Detoxed Safely, Responded well, Discharged Condition Good, Rehab Referral Accepted Patient has Accepted [facility] - Medication Discharge Medications: Ambulatory Orders Diclofenac Sodium [Voltaren] 2 gm TP TID PRN 12/27/17 Nadolol [Corgard -] 20 mg PO DAILY #30 tablet 12/29/17 Lactulose (Oral Use) [Cephulac -] 15 gm PO TID #1 udc 12/31/17 Pantoprazole Sodium [Protonix -] 40 mg PO DAILY #30 tablet.ec 01/14/18 Gabapentin [Neurontin -] 300 mg PO TID #90 capsule 01/15/18 Desvenlafaxine [Desvenlafaxine ER] 100 mg PO DAILY 06/19/19 Levothyroxine [Synthroid -] 50 mcg PO DAILY 06/19/19 Mirtazapine [Remeron -] 30 mg PO HS 06/19/19 - Diagnosis (1) Alcohol dependence with uncomplicated withdrawal Current Visit: Yes Status: Acute (2) Nicotine dependence Current Visit: Yes Status: Acute Qualifiers: Nicotine product type: cigarettes Substance use status: in withdrawal Qualified Code(s): F17.213 - Nicotine dependence, cigarettes, with withdrawal (3) GERD (gastroesophageal reflux disease) Current Visit: Yes Status: Chronic Qualifiers: Esophagitis presence: without esophagitis Qualified Code(s): K21.9 - Gastro -esophageal reflux disease without esophagitis (4) Alcohol dependence Current Visit: Yes Status: Acute Qualifiers: Substance use status: uncomplicated Qualified Code(s): F10.20 - Alcohol dependence, uncomplicated (5) Hypothyroidism Current Visit: Yes Status: Chronic Qualifiers: Hypothyroidism type: unspecified Qualified Code(s): E03.9 - Hypothyroidism , unspecified (6) Liver cirrhosis Current Visit: Yes Status: Chronic Qualifiers: Hepatic cirrhosis type: alcoholic cirrhosis Ascites presence: without ascites Qualified Code(s): K70.30 - Alcoholic cirrhosis of liver without ascites (7) Hypertension Current Visit: Yes Status: Chronic Qualifiers: Hypertension type: essential hypertension Qualified Code(s): I10 - Essential (primary) hypertension - AMA Did Patient Leave Against Medical Advice: No CIWA Score - CIWA Score Nausea/Vomitin-No Nausea/No Vomiting Muscle Tremors: None Anxiety: 1-Mildly Anxious Agitation: 0-Normal Activity Paroxysmal Sweats: No Perspiration Orientation: 0-Oriented Tacttile Disturbances: 0-None Auditory Disturbances: 0-None Visual Disturbances: 0-None Headache: 0-None Present CIWA-Ar Total Score: 1
== END 2019-06-23 12:47 | disposition other institution (70) | DRG 897 ==
LOC: YASAS 13:00 → Y3N 17:00
PROVIDERS: ADMIT Allergy & Immunology; ATTEND Allergy & Immunology
PROC: HZ2ZZZZ Detoxification Services for Substance Abuse Treatment (ICD-10-PCS; principal; 2019-06-19)
DX: F10.230 Alcohol dependence with withdrawal, uncomplicated (principal); F19.282 Other psychoactive substance dependence with psychoactive substance-induced sleep disorder; F17.213 Nicotine dependence, cigarettes, with withdrawal; F41.9 Anxiety disorder, unspecified; F32.9 Major depressive disorder, single episode, unspecified; I10 Essential (primary) hypertension; K70.30 Alcoholic cirrhosis of liver without ascites; K21.9 Gastro-esophageal reflux disease without esophagitis; E03.9 Hypothyroidism, unspecified; Z86.69 Personal history of other diseases of the nervous system and sense organs; Z91.013 Allergy to seafood
CPT/HCPCS: 36415; 80053; 85027; 86593; 93005; 93010

== ENCOUNTER 2019-06-23 12:52 | Inpatient (IN) | payer OTHER ==
--- NOTE | 2019-06-23 10:22 | HP ---
[facility] Rehab Assess/Revision - Admission History Admitted to Rehab from: [facility] Date of Admission to Rehab: 06/23/19 - Findings Detox History & Physical reviewed: Yes Concur with findings: Yes Comments/Additional Findings: transferred from detox to rehab admission as per protocol Inpatient Rehab Admission - Rehab Decision to Admit Inpatient rehab admission?: Yes - Initial Determination Are CD services needed?: Yes Free of communicable disease: Yes Not in need of hospitalization: Yes - Rehab Admission Criteria Previous failed treatment: Yes Poor recovery environment: Yes Comorbidities: Yes Lacks judgement: Yes Patient is meeting Inpatient Rehab admission criteria:: Yes
[~2019-06-23 12:52] MED LIST: LOPERAMIDE HCL 2 MG CAPSULE PO PRN; MAG HYDROX/AL HYDROX/SIMETH 30 ML UNIT-DOSE CUP PO PRN; MAGNESIUM CITRATE 300 ML BOTTLE PO PRN; MAGNESIUM HYDROX 2400MG/30ML ORAL SUSPENSION 30 ML CUP PO PRN; MENTHOL/PHENOL 1 EACH UD MM PRN; NICOTINE 7 MG/24 HOURS TOPICAL PATCH TD PRN; NICOTINE POLACRILEX 2 MG GUM BUC PRN; P-EPHED 60MG/TRIPROLIDI 2.5MG TABLET PO PRN; guaiFENesin 200 MG/10 ML 10 ML UNIT-DOSE CUPS PO PRN
[2019-06-23] MEDS ORDERED: LACTULOSE 20 GM/30 ML UDC (FOR ORAL USE ONLY) PO SCH (14:00)
--- NOTE | 2019-06-23 15:13 | PN ---
S Progress Note Note: 53 y/o m pt with h/o chronic alcoholism,cirrhosis, thrombocytopenia, hypothyroidism, htn and gerd, completed detox and admitted to [facility] in stable condition .The pt is not bleeding . Previous Platlet count 47k , at present platlet count is 20k. Orders written . Plan : repeat cbc/platlets tsh
[2019-06-23] MEDS: GABAPENTIN 300 MG CAPSULE (FP) PO SCH ×2 (15:32→21:13)
[2019-06-23] MEDS: MIRTAZAPINE 30 MG TABLET (FP) PO SCH (21:13)
[2019-06-23] MEDS: LACTULOSE 20 GM/30 ML UDC (FOR ORAL USE ONLY) PO SCH (21:13)
[2019-06-23] MEDS: MELATONIN 5 MG TABLETS PO PRN (21:13)
[2019-06-23] MEDS: THIAMINE HCL 100 MG TABLET (FP) PO SCH (21:13)
[2019-06-23] MEDS: FAMOTIDINE 20 MG TABLET PO SCH (21:13)
[2019-06-24] MEDS: LACTULOSE 20 GM/30 ML UDC (FOR ORAL USE ONLY) PO SCH ×3 (06:34→21:14)
[2019-06-24] MEDS: LEVOTHYROXINE NA 25 MCG TABLET (FP) PO SCH (06:34)
[2019-06-24] MEDS: GABAPENTIN 300 MG CAPSULE (FP) PO SCH ×3 (06:34→21:13)
[2019-06-24] MEDS: PRENATAL VITAMINS W/ FOLIC ACID TABLET (FP) PO SCH (10:00)
[2019-06-24] MEDS: FAMOTIDINE 20 MG TABLET PO SCH ×2 (10:00→21:13)
[2019-06-24] MEDS: DESVENLAFAXINE 100 MG PO SCH (10:00)
[2019-06-24] MEDS: NADOLOL 20 MG TABLET (FP) PO SCH (10:00)
--- NOTE | 2019-06-24 10:53 | CONSULT ---
[facility] Psychiatric Consult - Data Date of interview: 06/24/19 Admission source: [facility] Identifying data: Patient is a 53 year old single male, without children, unemployed, domiciled, and is supported by [facility]. This is one of multiple admissions for patient. Patient admitted to for alcohol dependence. Substance Abuse History: Smoking Cessation. Smoking history: Current every day smoker. Have you smoked in the past 12 months: Yes. Aproximately how many cigarettes per day: 10. Cigars Per Day: 0. Hx Chewing Tobacco Use: No. Initiated information on smoking cessation: Yes. 'Breaking Loose' booklet given : 06/19/19. - Substances abused. Alcohol. Substance route: Oral. Frequency: Daily. Amount used: 12 (16oz) beers. Age of first use: 17. Date of last use: 06/19/19 Medical History: Significant for cirrhosis of the liver, GERD and history of alcohol withdrawal seizure and GI bleed with endoscopy with sclerotherapy. Psychiatric History: Patient seen by music writer in detox. History remains consistent. Patient's first psychiatric contact was approximately five years ago after he saw a private psychiatrist due to his history of alcohol dependence. Patient is not currently followed by a psychiatric provider. Reports being prescribed Desvenlafaxine 100mg + gabapentin 300mg TID (pain) + Remeron 30mg. As per previous notes patient has been prescribed celexa 10mg + effexor 225 + remeron 45 in the past. Diagnosis of depression and anxiety. Medications verified while in detox. Patient denies history of psychiatric hospitalization and suicide attempt. At present patient reports stable mood. Physical/Sexual Abuse/Trauma History: denies Mental Status Exam - Mental Status Exam Alert and Oriented to: Time, Place, Person Cognitive Function: Good Patient Appearance: Well Groomed Mood: Euthymic Affect: Mood Congruent Patient Behavior: Cooperative Speech Pattern: Appropriate Voice Loudness: Normal Thought Process: Goal Oriented Thought Disorder: Not Present Hallucinations: Denies Suicidal Ideation: Denies Homicidal Ideation: Denies Insight/Judgement: Poor Sleep: Fair Appetite: Fair Muscle strength/Tone: Normal Gait/Station: Normal Psychiatric Findings - Problem List (Binger 1, 2,3) (1) Alcohol dependence Current Visit: Yes Status: Acute Qualifiers: Substance use status: uncomplicated Qualified Code(s): F10.20 - Alcohol dependence, uncomplicated (2) Nicotine dependence Current Visit: Yes Status: Acute Qualifiers: Nicotine product type: cigarettes Substance use status: in withdrawal Qualified Code(s): F17.213 - Nicotine dependence, cigarettes, with withdrawal (3) Substance-induced sleep disorder Current Visit: Yes Status: Acute (4) Anxiety disorder Current Visit: Yes Status: Chronic (5) Depressive disorder Current Visit: Yes Status: Chronic - Initial Treatment Plan Initial Treatment Plan: Psychoeducation provided. Will continue Desvenlafaxine 100mg daily + Mirtazapine 30mg HS. Benefits and side effects discussed. Verbal consent given.
--- NOTE | 2019-06-24 11:04 | PN ---
[facility] Progress Note Note: Pt was admitted to detox for AUD- came to rehab yesterday. Doing well. No complaints. d/w pt different options for treatment of AUD and management of cirrhosis. Pt has a PCP- with whom he will f/u
[2019-06-24 12:18] LABS: BASO % 2.5 % (0-2.0); HEMATOCRIT 43.4 % (35.4-49); HEMOGLOBIN 14.4 GM/dL (11.7-16.9); LYMPH % 23.2 % (8-40); MCH 34.2 pg (25.7-33.7); MCHC 33.3 g/dl (32.0-35.9); MEAN CELL VOLUME 102.7 fl (80-96); MEAN PLT VOLUME 12.5 fl (7.5-11.1); MONO % 16.4 % (3.8-10.2); NEUT % 54.9 % (42.8-82.8); PLATELET COUNT 50 K/MM3 (134-434); RBC 4.22 M/mm3 (4.00-5.60); RDW 16.9 % (11.9-15.9); WHITE BLOOD COUNT 5.6 K/mm3 (4.0-10.0)
[2019-06-24 12:56] LABS: PLATELET ESTIMATE DECREASED
[2019-06-24] MEDS: NALTREXONE HCL 50 MG TABLET PO SCH (15:12)
[2019-06-24] MEDS: MIRTAZAPINE 30 MG TABLET (FP) PO SCH (21:13)
[2019-06-24] MEDS: THIAMINE HCL 100 MG TABLET (FP) PO SCH (21:13)
[2019-06-24] MEDS: MELATONIN 5 MG TABLETS PO PRN (21:13)
[2019-06-25] MEDS: GABAPENTIN 300 MG CAPSULE (FP) PO SCH ×3 (06:03→21:32)
[2019-06-25] MEDS: LACTULOSE 20 GM/30 ML UDC (FOR ORAL USE ONLY) PO SCH ×3 (06:03→21:32)
[2019-06-25] MEDS: LEVOTHYROXINE NA 25 MCG TABLET (FP) PO SCH (06:03)
[2019-06-25] MEDS ORDERED: PT OWN MED DRAWER 7, Y5N ONE (08:40)
[2019-06-25] MEDS: PRENATAL VITAMINS W/ FOLIC ACID TABLET (FP) PO SCH (09:34)
[2019-06-25] MEDS: DESVENLAFAXINE 100 MG PO SCH (09:34)
[2019-06-25] MEDS: NADOLOL 20 MG TABLET (FP) PO SCH (09:34)
[2019-06-25] MEDS: FAMOTIDINE 20 MG TABLET PO SCH ×2 (09:34→21:32)
[2019-06-25] MEDS: NALTREXONE HCL 50 MG TABLET PO SCH (09:34)
[2019-06-25] MEDS: MIRTAZAPINE 30 MG TABLET (FP) PO SCH (21:32)
[2019-06-25] MEDS: THIAMINE HCL 100 MG TABLET (FP) PO SCH (21:32)
[2019-06-26] MEDS: LACTULOSE 20 GM/30 ML UDC (FOR ORAL USE ONLY) PO SCH ×3 (06:13→21:05)
[2019-06-26] MEDS: LEVOTHYROXINE NA 25 MCG TABLET (FP) PO SCH (06:13)
[2019-06-26] MEDS: GABAPENTIN 300 MG CAPSULE (FP) PO SCH ×3 (06:13→21:05)
[2019-06-26] MEDS: NALTREXONE HCL 50 MG TABLET PO SCH (09:51)
[2019-06-26] MEDS: PRENATAL VITAMINS W/ FOLIC ACID TABLET (FP) PO SCH (09:51)
[2019-06-26] MEDS: NADOLOL 20 MG TABLET (FP) PO SCH (09:51)
[2019-06-26] MEDS: FAMOTIDINE 20 MG TABLET PO SCH ×2 (09:52→21:05)
[2019-06-26] MEDS: DESVENLAFAXINE 100 MG PO SCH (09:52)
[2019-06-26] MEDS: MIRTAZAPINE 30 MG TABLET (FP) PO SCH (21:05)
[2019-06-26] MEDS: THIAMINE HCL 100 MG TABLET (FP) PO SCH (21:06)
[2019-06-27] MEDS: LEVOTHYROXINE NA 25 MCG TABLET (FP) PO SCH (06:06)
[2019-06-27] MEDS: GABAPENTIN 300 MG CAPSULE (FP) PO SCH ×3 (06:06→21:48)
[2019-06-27] MEDS: LACTULOSE 20 GM/30 ML UDC (FOR ORAL USE ONLY) PO SCH ×3 (06:06→21:48)
[2019-06-27] MEDS: NALTREXONE HCL 50 MG TABLET PO SCH (09:36)
[2019-06-27] MEDS: DESVENLAFAXINE 100 MG PO SCH (09:36)
[2019-06-27] MEDS: PRENATAL VITAMINS W/ FOLIC ACID TABLET (FP) PO SCH (09:37)
[2019-06-27] MEDS: FAMOTIDINE 20 MG TABLET PO SCH ×2 (09:37→21:48)
[2019-06-27] MEDS: NADOLOL 20 MG TABLET (FP) PO SCH (09:37)
[2019-06-27] MEDS: THIAMINE HCL 100 MG TABLET (FP) PO SCH (21:47)
[2019-06-27] MEDS: MIRTAZAPINE 30 MG TABLET (FP) PO SCH (21:48)
[2019-06-28] MEDS: LEVOTHYROXINE NA 25 MCG TABLET (FP) PO SCH (05:59)
[2019-06-28] MEDS: GABAPENTIN 300 MG CAPSULE (FP) PO SCH ×3 (05:59→21:11)
[2019-06-28] MEDS: LACTULOSE 20 GM/30 ML UDC (FOR ORAL USE ONLY) PO SCH ×3 (05:59→21:11)
[2019-06-28] MEDS: NADOLOL 20 MG TABLET (FP) PO SCH (09:51)
[2019-06-28] MEDS: PRENATAL VITAMINS W/ FOLIC ACID TABLET (FP) PO SCH (09:51)
[2019-06-28] MEDS: FAMOTIDINE 20 MG TABLET PO SCH ×2 (09:51→21:11)
[2019-06-28] MEDS: NALTREXONE HCL 50 MG TABLET PO SCH (09:51)
[2019-06-28] MEDS: DESVENLAFAXINE 100 MG PO SCH (09:51)
[2019-06-28] MEDS: THIAMINE HCL 100 MG TABLET (FP) PO SCH (21:12)
[2019-06-28] MEDS: MIRTAZAPINE 30 MG TABLET (FP) PO SCH (21:12)
[2019-06-28] MEDS: MELATONIN 5 MG TABLETS PO PRN (21:12)
[2019-06-29] MEDS: LEVOTHYROXINE NA 25 MCG TABLET (FP) PO SCH (06:07)
[2019-06-29] MEDS: GABAPENTIN 300 MG CAPSULE (FP) PO SCH ×3 (06:07→21:29)
[2019-06-29] MEDS: LACTULOSE 20 GM/30 ML UDC (FOR ORAL USE ONLY) PO SCH ×3 (06:07→21:29)
[2019-06-29] MEDS: FAMOTIDINE 20 MG TABLET PO SCH ×2 (09:46→21:29)
[2019-06-29] MEDS: NADOLOL 20 MG TABLET (FP) PO SCH (09:46)
[2019-06-29] MEDS: NALTREXONE HCL 50 MG TABLET PO SCH (09:46)
[2019-06-29] MEDS: DESVENLAFAXINE 100 MG PO SCH (09:46)
[2019-06-29] MEDS: PRENATAL VITAMINS W/ FOLIC ACID TABLET (FP) PO SCH (09:46)
--- NOTE | 2019-06-29 15:05 | PN ---
[facility] Progress Note Note: Continues to have elevated ammonia levels; continue lactulose. Laboratory Last Values WBC 5.6 K/mm3 (4.0-10.0) 06/24/19 08:40 RBC 4.22 M/mm3 (4.00-5.60) 06/24/19 08:40 Hgb 14.4 GM/dL (11.7-16.9) 06/24/19 08:40 Hct 43.4 % (35.4-49) 06/24/19 08:40 MCV 102.7 fl (80-96) H 06/24/19 08:40 MCH 34.2 pg (25.7-33.7) H 06/24/19 08:40 MCHC 33.3 g/dl (32.0-35.9) 06/24/19 08:40 RDW 16.9 % (11.9-15.9) H 06/24/19 08:40 Plt Count 50 K/MM3 (134-434) L D 06/24/19 08:40 MPV 12.5 fl (7.5-11.1) H D 06/24/19 08:40 Absolute Neuts (auto) 3.1 K/mm3 (1.5-8.0) 06/24/19 08:40 Neutrophils % 54.9 % (42.8-82.8) 06/24/19 08:40 Lymphocytes % 23.2 % (8-40) 06/24/19 08:40 Monocytes % 16.4 % (3.8-10.2) H 06/24/19 08:40 Eosinophils % 3.0 % (0-4.5) 06/24/19 08:40 Basophils % 2.5 % (0-2.0) H 06/24/19 08:40 Nucleated RBC % 0 % (0-0) 06/24/19 08:40 Platelet Estimate Decreased 06/24/19 08:40 AST 74 U/L (15-37) H 06/24/19 08:40 Ammonia 93.20 umol/L (11-32) H 06/29/19 09:05 TSH 1.68 uIU/ml (0.358-3.74) 06/24/19 08:40
[2019-06-29] MEDS: MIRTAZAPINE 30 MG TABLET (FP) PO SCH (21:29)
[2019-06-29] MEDS: THIAMINE HCL 100 MG TABLET (FP) PO SCH (21:29)
[2019-06-30] MEDS: LACTULOSE 20 GM/30 ML UDC (FOR ORAL USE ONLY) PO SCH ×3 (06:03→21:16)
[2019-06-30] MEDS: GABAPENTIN 300 MG CAPSULE (FP) PO SCH ×3 (06:03→21:16)
[2019-06-30] MEDS: LEVOTHYROXINE NA 25 MCG TABLET (FP) PO SCH (06:03)
[2019-06-30] MEDS: NADOLOL 20 MG TABLET (FP) PO SCH (09:41)
[2019-06-30] MEDS: PRENATAL VITAMINS W/ FOLIC ACID TABLET (FP) PO SCH (09:41)
[2019-06-30] MEDS: FAMOTIDINE 20 MG TABLET PO SCH ×2 (09:41→21:16)
[2019-06-30] MEDS: DESVENLAFAXINE 100 MG PO SCH (09:41)
[2019-06-30] MEDS: NALTREXONE HCL 50 MG TABLET PO SCH (09:41)
[2019-06-30] MEDS: THIAMINE HCL 100 MG TABLET (FP) PO SCH (21:16)
[2019-06-30] MEDS: MIRTAZAPINE 30 MG TABLET (FP) PO SCH (21:16)
[2019-07-01] MEDS: GABAPENTIN 300 MG CAPSULE (FP) PO SCH ×3 (05:57→21:52)
[2019-07-01] MEDS: LACTULOSE 20 GM/30 ML UDC (FOR ORAL USE ONLY) PO SCH ×3 (05:57→21:52)
[2019-07-01] MEDS: LEVOTHYROXINE NA 25 MCG TABLET (FP) PO SCH (06:05)
[2019-07-01] MEDS ORDERED: PT OWN MED DRAWER 7, Y5N ONE (08:53)
[2019-07-01] MEDS: PRENATAL VITAMINS W/ FOLIC ACID TABLET (FP) PO SCH (09:34)
[2019-07-01] MEDS: NADOLOL 20 MG TABLET (FP) PO SCH (09:34)
[2019-07-01] MEDS: NALTREXONE HCL 50 MG TABLET PO SCH (09:34)
[2019-07-01] MEDS: DESVENLAFAXINE 100 MG PO SCH (09:34)
[2019-07-01] MEDS: FAMOTIDINE 20 MG TABLET PO SCH ×2 (09:34→21:52)
[2019-07-01] MEDS: MIRTAZAPINE 30 MG TABLET (FP) PO SCH (21:52)
[2019-07-01] MEDS: THIAMINE HCL 100 MG TABLET (FP) PO SCH (21:52)
[2019-07-02] MEDS: GABAPENTIN 300 MG CAPSULE (FP) PO SCH ×3 (06:08→21:06)
[2019-07-02] MEDS: LACTULOSE 20 GM/30 ML UDC (FOR ORAL USE ONLY) PO SCH ×3 (06:08→21:06)
[2019-07-02] MEDS: LEVOTHYROXINE NA 25 MCG TABLET (FP) PO SCH (06:08)
[2019-07-02] MEDS: PRENATAL VITAMINS W/ FOLIC ACID TABLET (FP) PO SCH (10:09)
[2019-07-02] MEDS: NADOLOL 20 MG TABLET (FP) PO SCH (10:09)
[2019-07-02] MEDS: NALTREXONE HCL 50 MG TABLET PO SCH (10:09)
[2019-07-02] MEDS: FAMOTIDINE 20 MG TABLET PO SCH ×2 (10:09→21:05)
[2019-07-02] MEDS: DESVENLAFAXINE 100 MG PO SCH (10:09)
[2019-07-02] MEDS: MIRTAZAPINE 30 MG TABLET (FP) PO SCH (21:06)
[2019-07-02] MEDS: THIAMINE HCL 100 MG TABLET (FP) PO SCH (21:06)
[2019-07-03] MEDS: GABAPENTIN 300 MG CAPSULE (FP) PO SCH ×3 (06:01→21:26)
[2019-07-03] MEDS: LACTULOSE 20 GM/30 ML UDC (FOR ORAL USE ONLY) PO SCH ×3 (06:01→21:26)
[2019-07-03] MEDS: LEVOTHYROXINE NA 25 MCG TABLET (FP) PO SCH (06:01)
[2019-07-03] MEDS: PRENATAL VITAMINS W/ FOLIC ACID TABLET (FP) PO SCH (09:44)
[2019-07-03] MEDS: DESVENLAFAXINE 100 MG PO SCH (09:44)
[2019-07-03] MEDS: NALTREXONE HCL 50 MG TABLET PO SCH (09:45)
[2019-07-03] MEDS: FAMOTIDINE 20 MG TABLET PO SCH ×2 (09:45→21:26)
[2019-07-03] MEDS: NADOLOL 20 MG TABLET (FP) PO SCH (09:45)
[2019-07-03] MEDS: MELATONIN 5 MG TABLETS PO PRN (21:26)
[2019-07-03] MEDS: THIAMINE HCL 100 MG TABLET (FP) PO SCH (21:26)
[2019-07-03] MEDS: MIRTAZAPINE 30 MG TABLET (FP) PO SCH (21:26)
[2019-07-04] MEDS: LEVOTHYROXINE NA 25 MCG TABLET (FP) PO SCH (06:16)
[2019-07-04] MEDS: LACTULOSE 20 GM/30 ML UDC (FOR ORAL USE ONLY) PO SCH ×3 (06:16→21:15)
[2019-07-04] MEDS: GABAPENTIN 300 MG CAPSULE (FP) PO SCH ×3 (06:16→21:15)
[2019-07-04] MEDS ORDERED: PT OWN MED DRAWER 7, Y5N ONE ×2 (08:46→08:47)
[2019-07-04] MEDS: PRENATAL VITAMINS W/ FOLIC ACID TABLET (FP) PO SCH (09:17)
[2019-07-04] MEDS: DESVENLAFAXINE 100 MG PO SCH (09:17)
[2019-07-04] MEDS: NALTREXONE HCL 50 MG TABLET PO SCH (09:17)
[2019-07-04] MEDS: NADOLOL 20 MG TABLET (FP) PO SCH (09:17)
[2019-07-04] MEDS: FAMOTIDINE 20 MG TABLET PO SCH ×2 (09:17→21:15)
[2019-07-04] MEDS: THIAMINE HCL 100 MG TABLET (FP) PO SCH (21:15)
[2019-07-04] MEDS: MIRTAZAPINE 30 MG TABLET (FP) PO SCH (21:15)
[2019-07-05] MEDS: LACTULOSE 20 GM/30 ML UDC (FOR ORAL USE ONLY) PO SCH ×3 (06:07→21:21)
[2019-07-05] MEDS: LEVOTHYROXINE NA 25 MCG TABLET (FP) PO SCH (06:07)
[2019-07-05] MEDS: GABAPENTIN 300 MG CAPSULE (FP) PO SCH ×3 (06:07→21:21)
[2019-07-05] MEDS: PRENATAL VITAMINS W/ FOLIC ACID TABLET (FP) PO SCH (09:35)
[2019-07-05] MEDS: NALTREXONE HCL 50 MG TABLET PO SCH (09:35)
[2019-07-05] MEDS: FAMOTIDINE 20 MG TABLET PO SCH ×2 (09:35→21:21)
[2019-07-05] MEDS: DESVENLAFAXINE 100 MG PO SCH (09:35)
[2019-07-05] MEDS: NADOLOL 20 MG TABLET (FP) PO SCH (09:35)
--- NOTE | 2019-07-05 14:12 | PN ---
[facility] Progress Note Note: Patient scheduled for discharge 07/06/19. Admitted to rehab for alcohol dependence 06/23/19 after completing detox here at [facility]. Patient attended group meetings, 1:1 counseling sessions and treated for elevated ammonia levels with Lactulose. Patient also started on Revia for alcohol cravings by Dr. Gann. He reports having been treated with Vivitrol injections by PCP Dr. Marcella Chaves, , with last dose over one month ago. Patient to call MD today for appointment tomorrow 07/06/19 and states he will continue to have MD refill all medications including Revia. Patient ordered ammonia level in am and is to follow up with provider for review of lab results prior discharge. Patient denies SI/HI and has no symptoms of active bleeding. Laboratory Tests 06/24/19 06/24/19 06/24/19 08:40 08:40 08:40 WBC 5.6 RBC 4.22 Hgb 14.4 Hct 43.4 MCV 102.7 H MCH 34.2 H MCHC 33.3 RDW 16.9 H Plt Count 50 L D MPV 12.5 H D Absolute Neuts (auto) 3.1 Neutrophils % 54.9 Lymphocytes % 23.2 Monocytes % 16.4 H Eosinophils % 3.0 Basophils % 2.5 H Nucleated RBC % 0 Platelet Estimate Decreased AST 74 H Ammonia 107.20 H TSH 1.68 06/29/19 09:05 WBC RBC Hgb Hct MCV MCH MCHC RDW Plt Count MPV Absolute Neuts (auto) Neutrophils % Lymphocytes % Monocytes % Eosinophils % Basophils % Nucleated RBC % Platelet Estimate AST Ammonia 93.20 H TSH Vital Signs Temperature 97.7 F 07/05/19 06:56 Pulse Rate 60 07/05/19 09:30 Respiratory Rate 18 07/05/19 09:30 Blood Pressure 127/77 07/05/19 09:30 O2 Sat by Pulse Oximetry (%) Ambulatory Orders Diclofenac Sodium [Voltaren] 2 gm TP TID PRN 12/27/17 Nadolol [Corgard -] 20 mg PO DAILY #30 tablet 12/29/17 Lactulose (Oral Use) [Cephulac -] 15 gm PO TID #1 udc 12/31/17 Pantoprazole Sodium [Protonix -] 40 mg PO DAILY #30 tablet.ec 01/14/18 Gabapentin [Neurontin -] 300 mg PO TID #90 capsule 01/15/18 Desvenlafaxine [Desvenlafaxine ER] 100 mg PO DAILY 06/19/19 Levothyroxine [Synthroid -] 50 mcg PO DAILY 06/19/19 Mirtazapine [Remeron -] 30 mg PO HS 06/19/19 ROS: denies shakes, sweating, n/v/d and anxiety. PE: alert and oriented x 3 skin warm and dry +perrla, eoms intact bl car s1s2 resp cta b/l ext full rom, amb ad tangela no tremors denies si/hi A/P: alcohol dependence elevated ammonia levels continue lactulose repeat level in am
[2019-07-05] MEDS: MIRTAZAPINE 30 MG TABLET (FP) PO SCH (21:21)
[2019-07-05] MEDS: THIAMINE HCL 100 MG TABLET (FP) PO SCH (21:21)
[2019-07-06] MEDS: LEVOTHYROXINE NA 25 MCG TABLET (FP) PO SCH (06:07)
[2019-07-06] MEDS: GABAPENTIN 300 MG CAPSULE (FP) PO SCH (06:07)
[2019-07-06] MEDS: LACTULOSE 20 GM/30 ML UDC (FOR ORAL USE ONLY) PO SCH (06:07)
[2019-07-06 06:44] VITALS: BP 159/92; PULSE 50; TEMP 97.6
--- NOTE | 2019-07-06 08:30 | PN ---
S Progress Note Note: Psychiatric nurse practitioner note: Patient scheduled for discharge today. A 30 day prescription of Desvenlafaxine 100mg ER + Mirtazapine 30mg was electronically sent to [facility] pharmacy, [address] [place] [id number].
--- NOTE | 2019-07-06 08:49 | DS ---
[facility] Rehab Discharge Summary - [facility] Rehab Discharge Summary Admission Date: 06/23/19 Discharge Date: 07/06/19 - History Present History: Alcohol dependence Pertinent Past History: 53 year old man with h/o multiple treatments for ETOH use; he reports alcohol related seizures and blackouts. - Discharge Physical Exam Vital Signs: Vital Signs Temperature 97.6 F 07/06/19 06:43 Pulse Rate 50 L 07/06/19 06:43 Respiratory Rate 18 07/06/19 06:43 Blood Pressure 159/92 07/06/19 06:43 O2 Sat by Pulse Oximetry (%) Pertinent Admission Physical Exam Findings: Physical General Appearance: No apparent distress HEENTM: Normocephalic, Respiratory: Lungs Clear, Neck: Supple Cardiology: S1, S2 Abdominal: +Bowel Sounds, Non Tender, Soft Musculoskeletal: full range of Motion, Gait Steady, Neurological: veterinary dentist II-XII NML intact, - Treatment Discharge Condition: Outpatient referral accepted (Medically stable for discharge.Patient will go to [facility] and to PCP for Vivitrol) - Medication Discharge Medications: Ambulatory Orders Diclofenac Sodium [Voltaren] 2 gm TP TID PRN 12/27/17 Nadolol [Corgard -] 20 mg PO DAILY #30 tablet 12/29/17 Lactulose (Oral Use) [Cephulac -] 15 gm PO TID #1 udc 12/31/17 Pantoprazole Sodium [Protonix -] 40 mg PO DAILY #30 tablet.ec 01/14/18 Gabapentin [Neurontin -] 300 mg PO TID #90 capsule 01/15/18 Levothyroxine [Synthroid -] 50 mcg PO DAILY 06/19/19 Mirtazapine [Remeron -] 30 mg PO HS 06/19/19 Desvenlafaxine [Desvenlafaxine ER] 100 mg PO DAILY #30 tab.er.24 07/06/19 Mirtazapine [Remeron -] 30 mg PO HS #30 tablet 07/06/19 - Medication-Assisted Treatment (MAT) Medication-Assisted Treatment (MAT): Yes Medication Prescribed: Vivitrol (inj) (Will go to PCP for Vivitrol today at 1: 30.) MAT Follow-up Referral: Patient has appointment with PCP at 1:30 to start Vivitrol - Discharge Instructions Diet, activity, other medical instructions: Diet: as tolerated Activity: as tolerated Other medical instructions: Please follow up with aftercare referral and PCP appointment - Diagnosis (1) Alcohol dependence Current Visit: Yes Status: Chronic Qualifiers: Substance use status: uncomplicated Qualified Code(s): F10.20 - Alcohol dependence, uncomplicated - Follow-up Referral Minutes to complete discharge: 20 - AMA Did Patient Leave Against Medical Advice: No
[2019-07-06] MEDS ORDERED: PT OWN MED DRAWER 7, Y5N ONE (09:00)
[2019-07-06] MEDS: PRENATAL VITAMINS W/ FOLIC ACID TABLET (FP) PO SCH (09:03)
[2019-07-06] MEDS: NALTREXONE HCL 50 MG TABLET PO SCH (09:03)
[2019-07-06] MEDS: FAMOTIDINE 20 MG TABLET PO SCH (09:03)
[2019-07-06] MEDS: DESVENLAFAXINE 100 MG PO SCH (09:03)
[2019-07-06] MEDS: NADOLOL 20 MG TABLET (FP) PO SCH (09:03)
== END 2019-07-06 09:05 | disposition home or self-care (01) | DRG 895 ==
LOC: YASAS 12:52 → Y3W 12:53
PROVIDERS: ADMIT Neuromusculoskeletal Medicine & OMM; ATTEND Neuromusculoskeletal Medicine & OMM
PROC: HZ42ZZZ Group Counseling for Substance Abuse Treatment, Cognitive-Behavioral (ICD-10-PCS; principal; 2019-06-23)
DX: F10.20 Alcohol dependence, uncomplicated (principal); F19.282 Other psychoactive substance dependence with psychoactive substance-induced sleep disorder; E72.20 Disorder of urea cycle metabolism, unspecified; F17.213 Nicotine dependence, cigarettes, with withdrawal; F41.9 Anxiety disorder, unspecified; F32.9 Major depressive disorder, single episode, unspecified; I10 Essential (primary) hypertension; E03.9 Hypothyroidism, unspecified; K21.9 Gastro-esophageal reflux disease without esophagitis; K70.30 Alcoholic cirrhosis of liver without ascites; Z86.69 Personal history of other diseases of the nervous system and sense organs; Z91.013 Allergy to seafood
CPT/HCPCS: 36415; 82140; 84443; 84450; 85025

== ENCOUNTER 2019-09-25 17:52 | Inpatient (IN) | payer OTHER ==
--- NOTE | 2019-09-25 18:36 | BHS.RME ---
Substance Use & Tx History - Substance Use History Alcohol Substance amount: 12 - 12 oz beers Frequency of use: Daily Substance route: Oral Date of Last Use: 09/25/19 (1 p.m.) Cannabis Substance amount: 1 joint Frequency of use: Less than 3 times per week Substance route: Inhalation (ex: sniffing or snorting) Physical/Psych/Mental Status - Cooperativeness Cooperativeness: Cooperative - Physical Health Problems Is patient presently having any pain?: No Does patient presently have any injuries (include location): No Does patient currently have a fever: No Is patient : No CIWA Nausea/Vomitin-No Nausea/No Vomiting Muscle Tremors: 4-Moderate,w/Arms Extend Anxiety: 1-Mildly Anxious Agitation: 1-Slight > Activity Paroxysmal Sweats: No Perspiration Orientation: 0-Oriented Tacttile Disturbances: 0-None Auditory Disturbances: 0-None Visual Disturbances: 0-None Headache: 0-None Present (KERRY: 0.154 Elevated B/P: 145/90) CIWA-Ar Total Score: 6
[2019-09-25 19:13] VITALS: BMI 28.6
--- NOTE | 2019-09-25 19:27 | HP ---
CIWA Score Nausea/Vomitin-No Nausea/No Vomiting Muscle Tremors: 4-Moderate,w/Arms Extend Anxiety: 1-Mildly Anxious Agitation: 1-Slight > Activity Paroxysmal Sweats: No Perspiration Orientation: 0-Oriented Tacttile Disturbances: 0-None Auditory Disturbances: 0-None Visual Disturbances: 0-None Headache: 0-None Present (KERRY: 0.154 Elevated B/P: 145/90) CIWA-Ar Total Score: 6 - Admission Criteria OASAS Guidelines: Admission for Medically Managed Detox: Requires at least one of the followin. CIWA greater than 12 2. Seizures within the past 24 hours 3. Delirium tremens within the past 24 hours 4. Hallucinations within the past 24 hours 5. Acute intervention needed for co occurring medical disorder 6. Acute intervention needed for co occurring psychiatric disorder 7. Severe withdrawal that cannot be handled at a lower level of care (continued vomiting, continued diarrhea, abnormal vital signs) requiring intravenous medication and/or fluids 8. Patient presents the following: Acute intervention needed for co-occurring med or psych disorder (Patient has elevated BP, agitated with high KERRY) Admission Criteria Met: Admission criteria met Admitting History and Physical - Smoking History Smoking history: Current every day smoker Have you smoked in the past 12 months: Yes Aproximately how many cigarettes per day: 10 - Alcohol/Substance Use Hx Alcohol Use: Yes Admission ROS S - HPI Chief Complaint: I need to detox Allergies/Adverse Reactions: Allergies Allergy/AdvReac Type Severity Reaction Status Date / Time fish derived Allergy Severe Hives Verified 09/25/19 19:05 No Known Drug Allergies Allergy Verified 09/25/19 19:05 FISH Allergy Severe Hives Uncoded 09/25/19 19:05 History of Present Illness: Patient is 54 year old man with alcoholism who presents for detox, his last detox was from 06/19/2019 to 06/23/19 following which he had rehab from 06/23 to 07/08. He has h/o multiple treatments, he reports alcohol related seizures and blackouts with no specific times. Exam Limitations: No Limitations - Ebola screening Have you traveled outside of the country in the last 21 days: No Have you had contact with anyone from an Ebola affected area: No Have you been sick,other than usual withdrawal symptoms: No Do you have a fever: No - Review of Systems Constitutional: Changes in sleep EENT: reports: No Symptoms Reported Respiratory: reports: No Symptoms reported Cardiac: reports: Palpitations (on and off) GI: reports: Poor Appetite, Abdominal cramping : reports: No Symptoms Reported Musculoskeletal: reports: Muscle Weakness Integumentary: reports: Sweating Neuro: reports: Tremors Endocrine: reports: No Symptoms Reported Hematology: reports: No Symptoms Reported Psychiatric: reports: Agitated, Anxious Other Systems: Reviewed and Negative Patient History - Patient Medical History Hx Anemia: No Hx Asthma: No Hx Chronic Obstructive Pulmonary Disease (COPD): No Hx Cardiac Disorders: No Hx Hypertension: No Hx Pacemaker: No HX Cerebrovascular Accident: No Hx Seizures: No Hx Dementia: No Hx Diabetes: No Hx Gastrointestinal Disorders: No Hx Liver Disease: Yes (cirrhosis) Hx Genitourinary Disorders: No Hx Sexually Transmitted Disorders: No Hx Renal Disease (ESRD): No Hx Thyroid Disease: Yes Hx Human Immunodeficiency Virus (HIV): No Hx Hepatitis C: No Hx Depression: Yes Hx Suicide Attempt: No Hx Bipolar Disorder: No Hx Schizophrenia: No - Patient Surgical History Past Surgical History: No Hx Neurologic Surgery: No Hx Cataract Extraction: No Hx Cardiac Surgery: No Hx Lung Surgery: No Hx Breast Surgery: No Hx Breast Biopsy: No Hx Abdominal Surgery: No Hx Appendectomy: No Hx Cholecystectomy: No Hx Genitourinary Surgery: No Hx Section: No Hx Orthopedic Surgery: No Other Surgical History: ENDOSCOPY WITH SCLEROTHERAPY Anesthesia Reaction: No - PPD History Previous Implant?: Yes Documented Results: Negative w/proof Implanted On Prior [facility] Admission?: Yes Date: 12/29/17 Results: 0 mm. PPD to be Administered?: Yes - Smoking Cessation Smoking history: Current every day smoker Have you smoked in the past 12 months: Yes Aproximately how many cigarettes per day: 10 Cigars Per Day: 0 Hx Chewing Tobacco Use: No Initiated information on smoking cessation: Yes 'Breaking Loose' booklet given: 09/25/19 - Substances abused Alcohol Substance route: Oral Frequency: Daily Amount used: 12 BEERS Age of first use: 19 Date of last use: 09/25/19 Admission Physical Exam [facility] - Vital Signs Vital Signs: Vital Signs - 24 hr 09/25/19 19:07 Temperature 97.4 F L Pulse Rate 76 Respiratory 16 Rate Blood Pressure 145/90 - Physical General Appearance: Yes: Alcohol on Breath, Irritable, Anxious HEENTM: Yes: Normocephalic, Normal Voice, Pharynx Normal Respiratory: Yes: Chest Non-Tender, Lungs Clear, No Respiratory Distress, No Accessory Muscle Use Neck: Yes: No masses,lesions,Nodules, Supple Breast: Yes: Breast Exam Deferred Cardiology: Yes: Regular Rhythm, Regular Rate, S1, S2 Abdominal: Yes: Normal Bowel Sounds, Non Tender, Soft Genitourinary: Yes: Within Normal Limits Back: Yes: Normal Inspection Musculoskeletal: Yes: full range of Motion, Gait Steady, Pelvis Stable Extremities: Yes: Normal Range of Motion Neurological: Yes: government services professional II-XII NML intact, Fully Oriented, Alert, Normal Mood/Affect, Normal Response Integumentary: Yes: Moist Lymphatic: Yes: Within Normal Limits - Diagnostic (1) Alcohol dependence with uncomplicated withdrawal Current Visit: Yes Status: Acute (2) Nicotine dependence Current Visit: Yes Status: Acute Qualifiers: Nicotine product type: cigarettes Substance use status: uncomplicated Qualified Code(s): F17.210 - Nicotine dependence, cigarettes, uncomplicated (3) Alcoholic cirrhosis of liver Current Visit: Yes Status: Chronic Qualifiers: Ascites presence: without ascites Qualified Code(s): K70.30 - Alcoholic cirrhosis of liver without ascites (4) Esophageal varices in alcoholic cirrhosis Current Visit: Yes Status: Chronic (5) JUSTIN (generalized anxiety disorder) Current Visit: Yes Status: Chronic (6) GERD (gastroesophageal reflux disease) Current Visit: Yes Status: Chronic Qualifiers: Esophagitis presence: without esophagitis Qualified Code(s): K21.9 - Gastro-esophageal reflux disease without esophagitis (7) Hypertension Current Visit: Yes Status: Chronic Qualifiers: Hypertension type: essential hypertension Qualified Code(s): I10 - Essential (primary) hypertension (8) Hypothyroidism Current Visit: Yes Status: Chronic Qualifiers: Hypothyroidism type: acquired Qualified Code(s): E03.9 - Hypothyroidism, unspecified Cleared for Admission B[facility] - Detox or Rehab S Level of Care: Medically Managed Detox Regimen/Protocol: Librium Claeared for Rehab Admission: No Breathalyzer - Breathalyzer Breathalyzer: 0.154 Urine Drug Screen - Test Device Lot number: [id number] Expiration date: 02/17/21 - Control Is test valid?: Yes - Results Drug screen NEGATIVE: No Urine drug screen results: THC-Marijuana Inpatient Rehab Admission - Rehab Decision to Admit Inpatient rehab admission?: No
[2019-09-25] MEDS ORDERED: MENTHOL/PHENOL 1 EACH UD MM PRN (19:32)
[2019-09-25] MEDS ORDERED: ONDANSETRON *ODT* 4 MG TABLET SL ONE (19:32)
[2019-09-25] MEDS ORDERED: chlordiazePOXIDE HCL 10 MG CAPSULE PO PRN (19:32)
[2019-09-25] MEDS ORDERED: ACETAMINOPHEN 325 MG TABLET (FP) PO PRN ×2 (19:32)
[2019-09-25] MEDS ORDERED: MAG HYDROX/AL HYDROX/SIMETH 30 ML UNIT-DOSE CUP PO PRN (19:32)
[2019-09-25] MEDS ORDERED: METHOCARBAMOL 500 MG TABLET PO PRN (19:32)
[2019-09-25] MEDS ORDERED: IBUPROFEN 400 MG TABLET (FP) PO PRN (19:32)
[2019-09-25] MEDS ORDERED: MAGNESIUM CITRATE 300 ML BOTTLE PO PRN (19:32)
[2019-09-25] MEDS ORDERED: BISMUTH SUBSALICYLATE 524 MG/30 ML UD PO PRN (19:32)
[2019-09-25] MEDS ORDERED: MAGNESIUM HYDROX 2400MG/30ML ORAL SUSPENSION 30 ML CUP PO PRN (19:32)
[2019-09-25] MEDS ORDERED: MIRTAZAPINE 15 MG TABLET (FP) PO ONE (22:00)
[2019-09-25] MEDS: MELATONIN 5 MG TABLETS PO SCH (22:36)
[2019-09-25] MEDS: THIAMINE HCL 100 MG TABLET (FP) PO SCH (22:36)
[2019-09-25] MEDS: hydrOXYzine PAMOATE 25 MG CAPSULE (FP) PO SCH (22:36)
[2019-09-25] MEDS: chlordiazePOXIDE HCL 25 MG CAPSULE PO SCH (22:36)
[2019-09-25] MEDS: NADOLOL 20 MG TABLET (FP) PO SCH (22:36)
[2019-09-25] MEDS: LACTULOSE 20 GM/30 ML UDC (FOR ORAL USE ONLY) PO SCH (22:37)
[2019-09-25] MEDS: GABAPENTIN 300 MG CAPSULE PO SCH (22:37)
[2019-09-26] MEDS: chlordiazePOXIDE HCL 25 MG CAPSULE PO SCH ×3 (05:22→22:04)
[2019-09-26] MEDS: hydrOXYzine PAMOATE 25 MG CAPSULE (FP) PO SCH ×5 (05:22→22:04)
[2019-09-26] MEDS: GABAPENTIN 300 MG CAPSULE PO SCH ×3 (05:23→22:04)
[2019-09-26] MEDS: LACTULOSE 20 GM/30 ML UDC (FOR ORAL USE ONLY) PO SCH ×3 (05:24→22:06)
[2019-09-26] MEDS: LEVOTHYROXINE NA 25 MCG TABLET (FP) PO SCH (08:05)
[2019-09-26] MEDS: NADOLOL 20 MG TABLET (FP) PO SCH (10:55)
[2019-09-26] MEDS: PRENATAL VITAMINS W/ FOLIC ACID TABLET (FP) PO SCH (10:56)
[2019-09-26] MEDS: PANTOPRAZOLE 40 MG TABLET PO SCH (10:56)
--- NOTE | 2019-09-26 11:03 | PN ---
S CIWA - CIWA Score Nausea/Vomitin-Mild Nausea/No Vomiting Muscle Tremors: 3 Anxiety: 3 Agitation: 0-Normal Activity Paroxysmal Sweats: 2 Orientation: 0-Oriented Tacttile Disturbances: 1-Very Mild Itch/Numbness Auditory Disturbances: 0-None Visual Disturbances: 2-Mild Sensitivity Headache: 0-None Present CIWA-Ar Total Score: 12 S Progress Note (SOAP) Subjective: 54 years old male admitted on 09/25/19 for alcohol withdrawal sx management treating with librium detox regiment feeling tired prefers to stay in bed today limited conversation with staff Objective: 09/26/19 11:02 Vital Signs Temperature 98.0 F 09/26/19 08:34 Pulse Rate 65 09/26/19 08:34 Respiratory Rate 18 09/26/19 08:34 Blood Pressure 136/86 09/26/19 08:34 O2 Sat by Pulse Oximetry (%) 09/26/19 11:02 lab pending Assessment: 09/26/19 11:03 alcohol withdrawal Plan: librium regiment
[2019-09-26 11:33] LABS: HEMATOCRIT 37.9 % (35.4-49); MCH 34.9 pg (25.7-33.7); MCHC 34.4 g/dl (32.0-35.9); MEAN CELL VOLUME 101.3 fl (80-96); MEAN PLT VOLUME 11.2 fl (7.5-11.1); PLATELET COUNT 66 K/MM3 (134-434); RBC 3.74 M/mm3 (4.00-5.60); RDW 15.5 % (11.9-15.9); WHITE BLOOD COUNT 5.7 K/mm3 (4.0-10.0)
[2019-09-26 11:46] LABS: ALBUMIN 3.1 g/dl (3.4-5.0); BILIRUBIN,TOTAL 0.8 mg/dL (0.2-1); BLOOD UREA NITROGEN 5.5 mg/dL (7-18); CALCIUM 8.6 mg/dL (8.5-10.1); CREATININE 0.7 mg/dL (0.55-1.3); POTASSIUM 3.3 mmol/L (3.5-5.1); TOT PROT 6.2 g/dl (6.4-8.2)
[2019-09-26] MEDS: NICOTINE POLACRILEX 2 MG GUM BUC PRN ×2 (17:33→19:35)
[2019-09-26] MEDS: THIAMINE HCL 100 MG TABLET (FP) PO SCH (22:05)
[2019-09-26] MEDS: MELATONIN 5 MG TABLETS PO SCH (22:06)
[2019-09-26] MEDS ORDERED: MIRTAZAPINE 30 MG TABLET (FP) PO ONE (22:15)
[2019-09-26] MEDS ORDERED: MIRTAZAPINE 15 MG TABLET (FP) ONE (22:38)
[2019-09-27] MEDS: LACTULOSE 20 GM/30 ML UDC (FOR ORAL USE ONLY) PO SCH ×3 (06:13→22:26)
[2019-09-27] MEDS: hydrOXYzine PAMOATE 25 MG CAPSULE (FP) PO SCH ×5 (06:14→22:27)
[2019-09-27] MEDS: chlordiazePOXIDE 5 MG CAPSULE PO SCH ×3 (06:14→22:25)
[2019-09-27] MEDS: LEVOTHYROXINE NA 25 MCG TABLET (FP) PO SCH (06:14)
[2019-09-27] MEDS: GABAPENTIN 300 MG CAPSULE PO SCH ×3 (06:14→22:26)
[2019-09-27] MEDS: NADOLOL 20 MG TABLET (FP) PO SCH (10:24)
[2019-09-27] MEDS: PANTOPRAZOLE 40 MG TABLET PO SCH (10:24)
[2019-09-27] MEDS: PRENATAL VITAMINS W/ FOLIC ACID TABLET (FP) PO SCH (10:24)
[2019-09-27] MEDS: NICOTINE POLACRILEX 2 MG GUM BUC PRN ×4 (10:25→22:30)
--- NOTE | 2019-09-27 15:25 | CONSULT ---
[facility] Psychiatric Consult - Data Date of interview: 09/27/19 Admission source: [facility] Identifying data: Patient is a 54 year old single male, unemployed, domiciled, and is supported with [facility]. This is one of multiple admissions for patient. Patient admitted to for alcohol dependence. Substance Abuse History: Smoking Cessation. Smoking history: Current every day smoker. Have you smoked in the past 12 months: Yes. Aproximately how many cigarettes per day: 10. Cigars Per Day: 0. Hx Chewing Tobacco Use: No. Initiated information on smoking cessation: Yes. 'Breaking Loose' booklet given: 09/25/19. - Substances abused. Alcohol. Substance route: Oral. Frequency: Daily. Amount used: 12 BEERS. Age of first use: 19. Date of last use: Medical History: Significant for cirrhosis of the liver, GERD and history of alcohol withdrawal seizure and GI bleed with endoscopy with sclerotherapy. Psychiatric History: Patient denies history of psychiatric hospitalization and suicide attempt. Mr. Antunez reports history of seeing multiple outpatient psychiatric providers but at the moment is prescribed medications by his PCP. Mr. Antunez is currently prescribed desvenlafaxine 100mg daily + Remeron 30mg HS. Diagnosis of depression and anxiety. At present Mr. Antunez is requesting to resume his psychotropic medications. Physical/Sexual Abuse/Trauma History: denies. Mental Status Exam - Mental Status Exam Alert and Oriented to: Time, Place, Person Cognitive Function: Good Patient Appearance: Well Groomed Mood: Withdrawn Affect: Mood Congruent Patient Behavior: Appropriate, Cooperative Speech Pattern: Appropriate Voice Loudness: Normal Thought Process: Intact, Goal Oriented Thought Disorder: Not Present Hallucinations: Denies Suicidal Ideation: Denies Homicidal Ideation: Denies Insight/Judgement: Poor Sleep: Poorly Appetite: Fair Muscle strength/Tone: Normal Gait/Station: Normal Psychiatric Findings - Problem List ([place] 1, 2,3) (1) Alcohol dependence with uncomplicated withdrawal Status: Acute (2) Nicotine dependence Status: Acute Qualifiers: Nicotine product type: cigarettes Substance use status: in withdrawal Qualified Code(s): F17.213 - Nicotine dependence, cigarettes, with withdrawal (3) Depressive disorder Status: Chronic (4) Anxiety disorder Status: Chronic - Initial Treatment Plan Initial Treatment Plan: Psychoeducation provided. Desvenlafaxine 100mg daily + Remeron 30mg HS. Benefits and side effect discussed. Verbal consent given.
--- NOTE | 2019-09-27 15:30 | PN ---
[facility] CIWA - CIWA Score Nausea/Vomitin-No Nausea/No Vomiting Muscle Tremors: 3 Anxiety: 4-Mod. Anxious/Guarded Agitation: 1-Slight > Activity Paroxysmal Sweats: 2 Orientation: 0-Oriented Tacttile Disturbances: 0-None Auditory Disturbances: 0-None Visual Disturbances: 0-None Headache: 0-None Present CIWA-Ar Total Score: 10 S Progress Note (SOAP) Subjective: 54 years old male admitted on 09/25/19 for alcohol withdrawal sx management treating with librium detox regiment anxious about psychotropic medications requests to be seen by a psychiatrist psychiatrist referral Objective: 09/27/19 15:32 Vital Signs Temperature 96.9 F L 09/27/19 12:51 Pulse Rate 76 09/27/19 12:51 Respiratory Rate 18 09/27/19 12:51 Blood Pressure 143/88 09/27/19 12:51 O2 Sat by Pulse Oximetry (%) Laboratory Last Values WBC 5.7 K/mm3 (4.0-10.0) 09/26/19 07:50 RBC 3.74 M/mm3 (4.00-5.60) L 09/26/19 07:50 Hgb 13.0 GM/dL (11.7-16.9) 09/26/19 07:50 Hct 37.9 % (35.4-49) 09/26/19 07:50 MCV 101.3 fl (80-96) H 09/26/19 07:50 MCH 34.9 pg (25.7-33.7) H 09/26/19 07:50 MCHC 34.4 g/dl (32.0-35.9) 09/26/19 07:50 RDW 15.5 % (11.9-15.9) 09/26/19 07:50 Plt Count 66 K/MM3 (134-434) L D 09/26/19 07:50 MPV 11.2 fl (7.5-11.1) H D 09/26/19 07:50 Sodium 144 mmol/L (136-145) 09/26/19 07:50 Potassium 3.3 mmol/L (3.5-5.1) L 09/26/19 07:50 Chloride 110 mmol/L (98-107) H 09/26/19 07:50 Carbon Dioxide 28 mmol/L (21-32) 09/26/19 07:50 Anion Gap 7 MMOL/L (8-16) L 09/26/19 07:50 BUN 5.5 mg/dL (7-18) L 09/26/19 07:50 Creatinine 0.7 mg/dL (0.55-1.3) 09/26/19 07:50 Est GFR (CKD-EPI)AfAm 124.00 09/26/19 07:50 Est GFR (CKD-EPI)NonAf 106.99 09/26/19 07:50 Random Glucose 97 mg/dL (74-106) 09/26/19 07:50 Calcium 8.6 mg/dL (8.5-10.1) 09/26/19 07:50 Total Bilirubin 0.8 mg/dL (0.2-1) 09/26/19 07:50 AST 40 U/L (15-37) H 09/26/19 07:50 ALT 19 U/L (13-61) 09/26/19 07:50 Alkaline Phosphatase 70 U/L (45-117) 09/26/19 07:50 Total Protein 6.2 g/dl (6.4-8.2) L 09/26/19 07:50 Albumin 3.1 g/dl (3.4-5.0) L 09/26/19 07:50 RPR Titer Nonreactive (NONREACTIVE) 09/26/19 07:50 lab noted Assessment: 09/27/19 15:33 alcohol withdrawal Plan: librium regiment
[2019-09-27] MEDS: VENLAFAXINE HCL 150 MG E.R. CAPSULE PO SCH (15:52)
--- NOTE | 2019-09-27 17:55 | PN ---
S Progress Note Note: Psychiatric nurse practitioner note: Patient reports taking Desvenlafaxine 100mg daily at home. Desvenlafaxine ordered by narrative writer. Noted that Effexor 150mg XL was ordered by the pharmacist as it is a substitute of Desvenlafaxine as per the medical board policy. Case discussed with Pharmacist Gwen. Desvenlafaxine is not available at current facility. As per MAR patient accepted effexor 150mg XL at 15:52.
[2019-09-27] MEDS ORDERED: POTASSIUM CHLORIDE TABS 20 MEQ TABLET.ER (FP) PO ONE (18:30)
[2019-09-27] MEDS ORDERED: MIRTAZAPINE 15 MG TABLET (FP) ONE (21:42)
[2019-09-27] MEDS: THIAMINE HCL 100 MG TABLET (FP) PO SCH (22:27)
[2019-09-27] MEDS: MIRTAZAPINE 30 MG TABLET (FP) PO SCH (22:27)
[2019-09-27] MEDS: MELATONIN 5 MG TABLETS PO SCH (22:30)
[2019-09-28] MEDS ORDERED: chlordiazePOXIDE HCL 10 MG CAPSULE PO PRN
[2019-09-28] MEDS: chlordiazePOXIDE HCL 10 MG CAPSULE PO SCH ×3 (06:03→22:33)
[2019-09-28] MEDS: GABAPENTIN 300 MG CAPSULE PO SCH ×3 (06:03→22:33)
[2019-09-28] MEDS: hydrOXYzine PAMOATE 25 MG CAPSULE (FP) PO SCH ×5 (06:03→22:32)
[2019-09-28] MEDS: LACTULOSE 20 GM/30 ML UDC (FOR ORAL USE ONLY) PO SCH ×3 (06:04→22:34)
[2019-09-28] MEDS: LEVOTHYROXINE NA 25 MCG TABLET (FP) PO SCH (06:46)
[2019-09-28] MEDS: VENLAFAXINE HCL 150 MG E.R. CAPSULE PO SCH (10:24)
[2019-09-28] MEDS: NADOLOL 20 MG TABLET (FP) PO SCH (10:24)
[2019-09-28] MEDS: PRENATAL VITAMINS W/ FOLIC ACID TABLET (FP) PO SCH (10:24)
[2019-09-28] MEDS: PANTOPRAZOLE 40 MG TABLET PO SCH (10:24)
[2019-09-28] MEDS: NICOTINE POLACRILEX 2 MG GUM BUC PRN ×2 (10:53→13:30)
--- NOTE | 2019-09-28 13:48 | PN ---
S CIWA - CIWA Score Nausea/Vomitin-No Nausea/No Vomiting Muscle Tremors: 2 Anxiety: 2 Agitation: 2 Paroxysmal Sweats: No Perspiration Orientation: 0-Oriented Tacttile Disturbances: 0-None Auditory Disturbances: 0-None Visual Disturbances: 0-None Headache: 0-None Present CIWA-Ar Total Score: 6 BHS Progress Note (SOAP) Subjective: 54 years old male admitted on 09/25/19 for alcohol withdrawal sx management treating with librium detox regiment feeling better today less tremor mild anxiety Objective: 09/28/19 13:48 Vital Signs Temperature 97.1 F L 09/28/19 12:40 Pulse Rate 66 09/28/19 12:40 Respiratory Rate 16 09/28/19 12:40 Blood Pressure 124/79 09/28/19 12:40 O2 Sat by Pulse Oximetry (%) Laboratory Last Values WBC 5.7 K/mm3 (4.0-10.0) 09/26/19 07:50 RBC 3.74 M/mm3 (4.00-5.60) L 09/26/19 07:50 Hgb 13.0 GM/dL (11.7-16.9) 09/26/19 07:50 Hct 37.9 % (35.4-49) 09/26/19 07:50 MCV 101.3 fl (80-96) H 09/26/19 07:50 MCH 34.9 pg (25.7-33.7) H 09/26/19 07:50 MCHC 34.4 g/dl (32.0-35.9) 09/26/19 07:50 RDW 15.5 % (11.9-15.9) 09/26/19 07:50 Plt Count 66 K/MM3 (134-434) L D 09/26/19 07:50 MPV 11.2 fl (7.5-11.1) H D 09/26/19 07:50 Sodium 144 mmol/L (136-145) 09/26/19 07:50 Potassium 3.3 mmol/L (3.5-5.1) L 09/26/19 07:50 Chloride 110 mmol/L (98-107) H 09/26/19 07:50 Carbon Dioxide 28 mmol/L (21-32) 09/26/19 07:50 Anion Gap 7 MMOL/L (8-16) L 09/26/19 07:50 BUN 5.5 mg/dL (7-18) L 09/26/19 07:50 Creatinine 0.7 mg/dL (0.55-1.3) 09/26/19 07:50 Est GFR (CKD-EPI)AfAm 124.00 09/26/19 07:50 Est GFR (CKD-EPI)NonAf 106.99 09/26/19 07:50 Random Glucose 97 mg/dL (74-106) 09/26/19 07:50 Calcium 8.6 mg/dL (8.5-10.1) 09/26/19 07:50 Total Bilirubin 0.8 mg/dL (0.2-1) 09/26/19 07:50 AST 40 U/L (15-37) H 09/26/19 07:50 ALT 19 U/L (13-61) 09/26/19 07:50 Alkaline Phosphatase 70 U/L (45-117) 09/26/19 07:50 Total Protein 6.2 g/dl (6.4-8.2) L 09/26/19 07:50 Albumin 3.1 g/dl (3.4-5.0) L 09/26/19 07:50 RPR Titer Nonreactive (NONREACTIVE) 09/26/19 07:50 lab noted low K+ K+ supplement 09/28/19 13:50follow up with aftercare provider Assessment: 09/28/19 13:50 alcohol withdrawal Plan: librium regiment
[2019-09-28] MEDS ORDERED: MIRTAZAPINE 15 MG TABLET (FP) ONE (21:23)
[2019-09-28] MEDS: MIRTAZAPINE 30 MG TABLET (FP) PO SCH (22:32)
[2019-09-28] MEDS: THIAMINE HCL 100 MG TABLET (FP) PO SCH (22:33)
[2019-09-28] MEDS: MELATONIN 5 MG TABLETS PO SCH (22:35)
[2019-09-29] MEDS ORDERED: chlordiazePOXIDE HCL 10 MG CAPSULE PO ONE (05:00)
[2019-09-29] MEDS: LACTULOSE 20 GM/30 ML UDC (FOR ORAL USE ONLY) PO SCH (05:11)
[2019-09-29] MEDS: GABAPENTIN 300 MG CAPSULE PO SCH (05:12)
[2019-09-29] MEDS: hydrOXYzine PAMOATE 25 MG CAPSULE (FP) PO SCH (05:12)
[2019-09-29] MEDS: LEVOTHYROXINE NA 25 MCG TABLET (FP) PO SCH (06:36)
[2019-09-29 06:44] VITALS: BP 139/88; PULSE 60; TEMP 96.8
--- NOTE | 2019-09-29 10:52 | DS ---
[facility] Detox Discharge Summary Admission Date: 09/25/19 Discharge Date: 09/29/19 - History Present History: Alcohol Dependence, Opioid Dependence Additional Comments: 54 years old male admitted on 09/25/19 for alcohol withdrawal sx management treated with librium regiment Mr Antunez has completed the librium regiment and is tolerated well seen by psychiatrist resume effexor desvenlafaxine and remeron alert oriented x 3 no acute distress respiratory clear lungs sound bilaterally on auscultation abdomen soft no rebound tenderness skin warm and dry Pertinent Past History: time for discharge 38 minutes - Physical Exam Results Vital Signs: Vital Signs Temperature 96.8 F L 09/29/19 06:43 Pulse Rate 60 09/29/19 06:43 Respiratory Rate 18 09/29/19 06:43 Blood Pressure 139/88 09/29/19 06:43 O2 Sat by Pulse Oximetry (%) Pertinent Admission Physical Exam Findings: alcohol withdrawal Laboratory Last Values WBC 5.7 K/mm3 (4.0-10.0) 09/26/19 07:50 RBC 3.74 M/mm3 (4.00-5.60) L 09/26/19 07:50 Hgb 13.0 GM/dL (11.7-16.9) 09/26/19 07:50 Hct 37.9 % (35.4-49) 09/26/19 07:50 MCV 101.3 fl (80-96) H 09/26/19 07:50 MCH 34.9 pg (25.7-33.7) H 09/26/19 07:50 MCHC 34.4 g/dl (32.0-35.9) 09/26/19 07:50 RDW 15.5 % (11.9-15.9) 09/26/19 07:50 Plt Count 66 K/MM3 (134-434) L D 09/26/19 07:50 MPV 11.2 fl (7.5-11.1) H D 09/26/19 07:50 Sodium 144 mmol/L (136-145) 09/26/19 07:50 Potassium 3.3 mmol/L (3.5-5.1) L 09/26/19 07:50 Chloride 110 mmol/L (98-107) H 09/26/19 07:50 Carbon Dioxide 28 mmol/L (21-32) 09/26/19 07:50 Anion Gap 7 MMOL/L (8-16) L 09/26/19 07:50 BUN 5.5 mg/dL (7-18) L 09/26/19 07:50 Creatinine 0.7 mg/dL (0.55-1.3) 09/26/19 07:50 Est GFR (CKD-EPI)AfAm 124.00 09/26/19 07:50 Est GFR (CKD-EPI)NonAf 106.99 09/26/19 07:50 Random Glucose 97 mg/dL (74-106) 09/26/19 07:50 Calcium 8.6 mg/dL (8.5-10.1) 09/26/19 07:50 Total Bilirubin 0.8 mg/dL (0.2-1) 09/26/19 07:50 AST 40 U/L (15-37) H 09/26/19 07:50 ALT 19 U/L (13-61) 09/26/19 07:50 Alkaline Phosphatase 70 U/L (45-117) 09/26/19 07:50 Total Protein 6.2 g/dl (6.4-8.2) L 09/26/19 07:50 Albumin 3.1 g/dl (3.4-5.0) L 09/26/19 07:50 RPR Titer Nonreactive (NONREACTIVE) 09/26/19 07:50 T.pallidum Ab Interpret Cancelled 09/26/19 07:50 lab noted K+ 3.3 received potassium 40 meq x 1 - Treatment Hospital Course: Detox Protocol Followed, Detoxed Safely, Responded well, Discharged Condition Good, Rehab Referral Accepted Patient has Accepted a Rehab Referral to: [facility] - Medication Discharge Medications: Ambulatory Orders Nadolol [Corgard -] 20 mg PO DAILY #30 tablet 12/29/17 Lactulose (Oral Use) [Cephulac -] 15 gm PO TID #1 udc 12/31/17 Pantoprazole Sodium [Protonix -] 40 mg PO DAILY #30 tablet.ec 01/14/18 Gabapentin [Neurontin -] 300 mg PO TID #90 capsule 01/15/18 Levothyroxine [Synthroid -] 50 mcg PO DAILY 06/19/19 Desvenlafaxine [Desvenlafaxine ER] 100 mg PO DAILY #30 tab.er.24 07/06/19 Mirtazapine [Remeron -] 30 mg PO HS #30 tablet 07/06/19 - Diagnosis (1) Alcohol dependence with uncomplicated withdrawal Status: Acute (2) Nicotine dependence Status: Acute Qualifiers: Nicotine product type: cigarettes Substance use status: in withdrawal Qualified Code(s): F17.213 - Nicotine dependence, cigarettes, with withdrawal (3) GERD (gastroesophageal reflux disease) Status: Chronic Qualifiers: Esophagitis presence: without esophagitis Qualified Code(s): K21.9 - Gastro-esophageal reflux disease without esophagitis (4) Hypertension Status: Chronic Qualifiers: Hypertension type: essential hypertension Qualified Code(s): I10 - Essential (primary) hypertension (5) Hypothyroidism Status: Chronic Qualifiers: Hypothyroidism type: acquired Qualified Code(s): E03.9 - Hypothyroidism, unspecified (6) Liver cirrhosis Status: Chronic Qualifiers: Hepatic cirrhosis type: alcoholic cirrhosis Ascites presence: without ascites Qualified Code(s): K70.30 - Alcoholic cirrhosis of liver without ascites - AMA Did Patient Leave Against Medical Advice: No CIWA Score - CIWA Score Nausea/Vomitin-No Nausea/No Vomiting Muscle Tremors: 2 Anxiety: 1-Mildly Anxious Agitation: 0-Normal Activity Paroxysmal Sweats: No Perspiration Orientation: 0-Oriented Tacttile Disturbances: 0-None Auditory Disturbances: 0-None Visual Disturbances: 0-None Headache: 0-None Present CIWA-Ar Total Score: 3 COWS (PN) - Opiate Withdrawal Resting Pulse: 0= OK 80 or Below Sweatin= No chills or Flushing Restless Observation: 0= Sits Still Pupil Size: 0= Normal to Room Light Bone or Joint Aches: 1= Mild Discomfort Runny Nose/ Eye Tearin= None GI Upset > 30mins: 0= None Tremor Observation of Outstretched Hands: 1= Tremor [place], Not Seen Yawning Observation: 0= None Anxiety or Irritability: 1=Feels Anxious/Irritable Goose Flesh Skin: 0=Smooth Skin COWS Score: 3
== END 2019-09-29 08:42 | disposition home or self-care (01) | DRG 897 ==
LOC: YASAS 17:52 → Y3N 19:38
PROVIDERS: ADMIT Allergy & Immunology; ATTEND Allergy & Immunology
PROC: HZ2ZZZZ Detoxification Services for Substance Abuse Treatment (ICD-10-PCS; principal; 2019-09-25)
DX: F10.230 Alcohol dependence with withdrawal, uncomplicated (principal); I85.00 Esophageal varices without bleeding; F17.213 Nicotine dependence, cigarettes, with withdrawal; F32.9 Major depressive disorder, single episode, unspecified; F41.9 Anxiety disorder, unspecified; F41.1 Generalized anxiety disorder; I10 Essential (primary) hypertension; K21.9 Gastro-esophageal reflux disease without esophagitis; E03.9 Hypothyroidism, unspecified; K70.30 Alcoholic cirrhosis of liver without ascites; Z91.013 Allergy to seafood
CPT/HCPCS: 36415; 80053; 85027; 86593